=== PATIENT | female | born 1960 | race American Indian/Alaskan Native ===

== ENCOUNTER 2019-02-27 15:30 | Inpatient (IN) | payer OTHER ==
[~2019-02-27 15:30] MED LIST: HEPARIN 10,000 UNITS/10 ML ONE
[2019-02-27] MEDS ORDERED: ZOFRAN ONE (15:39)
[2019-02-27] MEDS ORDERED: MORPHINE ONE (15:39)
[2019-02-27] MEDS ORDERED: ZOFRAN IV ONE (15:39)
[2019-02-27] MEDS ORDERED: NACL 0.9% 1000 ML 1,000 ML IV ONE (15:39)
--- NOTE | 2019-02-27 15:39 | Emergency Department Report ---
ED Chest Pain HPI - General Stated Complaint: STEMI Time Seen by Provider: 02/27/19 15:37 - History of Present Illness Initial Comments: 58-year-old female STEMI code patient with prehospital EKG consistent with inferior STEMI. Her pain began yesterday. It was intermittent. She went to the movies. She returned to her home. He was found by EMS on the floor in the bathroom. She had nausea and some ongoing chest pain. She states she did not vomit. EMS states that she did pass out. She is here with a family member who gives conflicting information regarding her past medical history. Family member states that she was here 3 years ago and had a stent. The patient states that she does not have a stent in that she is not following up with a tank filler. She has a history of hypertension. She states that she does not have a history of myocardial infarction. Review of the patient's prior medical records in 2015 indicates the following: Hospitalization Reason for admission: unstable angina Condition: Serious Pertinent studies: stress test abn Cardiac cath today moderate 3 vessel disease Hospital course: Miss Gillette presented to the ER with chest pain and had normal cardiac enzymes; as stress test was abnormal and she went on to have a cardiac catherization which showed moderate 3 vessel disease; her chest pain resolved within 24 hours of presentation. condition at discharge-stable 31 minutes spent on dicharge The patient was admitted in cath and then treated medically for three-vessel disease. No likelihood she did not follow-up with a tank filler. She does state that she was going to the [facility] and recently began going to a primary care provider. MD Complaint: chest pain -: hour(s) Onset: during rest Pain Location: left chest Severity: moderate, severe Quality: tightness, heaviness Consistency: constant (now constant) Improves With: nothing Worsens With: nothing re: nausea, other (possible syncope). denies: dyspnea Other Symptoms: syncope. denies: cough, fever Treatments Prior to Arrival: aspirin (patient was given aspirin by EMS but no nitroglycerin) Aspirin use within the Past 7 Days: (0) No - Related Data Home Medications Medication Instructions Recorded Confirmed Last Taken Aspirin 325 mg PO QDAY 11/21/15 11/21/15 11/20/15 Niacin 250 mg PO DAILY 11/21/15 11/21/15 Unknown [place]-3 Fatty Acids [Fish Oil] 300 mg PO DAILY 11/21/15 11/21/15 Unknown Vit C/Ascorbate Calcium,Sodium 500 mg PO DAILY 11/21/15 11/21/15 Unknown [Vitamin C 500 mg/15 ml Liquid] Previous Rx's Medication Instructions Recorded Last Taken Type amLODIPine [Norvasc] 10 mg PO DAILY #90 tablet 01/16/15 11/20/15 Rx amLODIPine [Norvasc] 10 mg PO DAILY #30 tab 11/21/15 Unknown Rx AtorvaSTATin [Lipitor] 20 mg PO QHS #30 tablet 11/23/15 Unknown Rx Carvedilol [Coreg] 3.125 mg PO BID #60 tablet 11/23/15 Unknown Rx Clopidogrel [Plavix] 75 mg PO QDAY 30 Days tablet 11/23/15 Unknown Rx Nitroglycerin [Nitrostat] 0.4 mg SL Q5M PRN #30 tablet 11/23/15 Unknown Rx Allergies Allergy/AdvReac Type Severity Reaction Status Date / Time No Known Allergies Allergy Unverified 02/27/19 15:46 Heart Score - HEART Score History: Highly suspicious EKG: Significant ST-depression Age: 45-65 Risk factors: > 3 risk factors or hx of atherosclerotic disease Troponin: 1-3x normal limit HEART Score: 8 - Critical Actions Critical Actions: >7 pts:50-65% risk of adverse cardiac event. Early invasive measures ED Review of Systems ROS: Stated complaint: STEMI Other details as noted in HPI Constitutional: denies: chills, fever Eyes: denies: eye pain, eye discharge, vision change ENT: denies: ear pain, throat pain Respiratory: denies: cough, shortness of breath, wheezing Cardiovascular: chest pain. denies: palpitations Endocrine: no symptoms reported Gastrointestinal: nausea, vomiting. denies: abdominal pain, diarrhea Genitourinary: denies: urgency, dysuria, discharge Musculoskeletal: denies: back pain, joint swelling, arthralgia Skin: denies: rash, lesions Neurological: denies: headache, weakness, paresthesias Psychiatric: denies: anxiety, depression Hematological/Lymphatic: denies: easy bleeding, easy bruising ED Past Medical Hx - Past Medical History Hx Hypertension: Yes Additional medical history: Three-vessel coronary artery disease. Hypertension - Surgical History Hx Coronary Stent: No - Social History Smoking Status: Never Smoker - Medications Home Medications: Home Medications Medication Instructions Recorded Confirmed Last Taken Type amLODIPine [Norvasc] 10 mg PO DAILY #90 tablet 01/16/15 11/21/15 11/20/15 Rx Aspirin 325 mg PO QDAY 11/21/15 11/21/15 11/20/15 History Niacin 250 mg PO DAILY 11/21/15 11/21/15 Unknown History [place]-3 Fatty Acids [Fish Oil] 300 mg PO DAILY 11/21/15 11/21/15 Unknown History Vit C/Ascorbate Calcium,Sodium 500 mg PO DAILY 11/21/15 11/21/15 Unknown History [Vitamin C 500 mg/15 ml Liquid] amLODIPine [Norvasc] 10 mg PO DAILY #30 tab 11/21/15 Unknown Rx AtorvaSTATin [Lipitor] 20 mg PO QHS #30 tablet 11/23/15 Unknown Rx Carvedilol [Coreg] 3.125 mg PO BID #60 tablet 11/23/15 Unknown Rx Clopidogrel [Plavix] 75 mg PO QDAY 30 Days tablet 11/23/15 Unknown Rx Nitroglycerin [Nitrostat] 0.4 mg SL Q5M PRN #30 tablet 11/23/15 Unknown Rx ED Physical Exam - General General appearance: alert, in no apparent distress, other (a bit pale) - Head Head exam: Present: atraumatic, normocephalic - Eye Eye exam: Present: normal appearance - ENT ENT exam: Present: mucous membranes moist - Neck Neck exam: Present: normal inspection - Respiratory Respiratory exam: Present: normal lung sounds bilaterally. Absent: respiratory distress - Cardiovascular Cardiovascular Exam: Present: regular rate, normal rhythm. Absent: systolic murmur, diastolic murmur, rubs, gallop - GI/Abdominal GI/Abdominal exam: Present: soft, normal bowel sounds. Absent: distended, tenderness, guarding, rebound - Extremities Exam Extremities exam: Present: normal inspection - Back Exam Back exam: Present: normal inspection - Neurological Exam Neurological exam: Present: alert, oriented X3, CN II-XII intact. Absent: motor sensory deficit - Psychiatric Psychiatric exam: Present: normal affect, normal mood - Skin Skin exam: Present: warm, dry, intact, normal color. Absent: rash ED Course Vital Signs 02/27/19 02/27/19 02/27/19 15:41 15:42 15:45 Temperature 97.8 F Pulse Rate 55 L Respiratory 16 16 16 Rate Blood Pressure 128/55 O2 Sat by Pulse 100 100 Oximetry - Reevaluation(s) Reevaluation #1: A code STEMI was called upon receipt of prehospital EKG. Spoke to Dr. Willam heath prior to patient arrival. He is in route. Lab has been activated. Prehospital EKG consistent with inferior STEMI. EKG on arrival consistent with inferior STEMI. Patient with us pain since yesterday afternoon. She went to the movies today. Upon her return home chest pain worsened and she felt very nauseated. She was found by paramedics on the bathroom floor. She states that she did not lose consciousness. Medics question that she had a syncopal episode. They found her to have heart rates in the 50s but her blood pressure was definitely maintained. Patient was transported emergently for further care and stabilization. 02/27/19 15:37 Reevaluation #2: Mentioned the patient to Dr. Landon for possible admission to the hospitalist service. He will coordinate with Dr. Ortiz. 02/27/19 16:33 ED Medical Decision Making - Lab Data Result diagrams: 02/27/19 15:45 02/27/19 15:45 Laboratory Results - last 24 hr 02/27/19 02/27/19 02/27/19 15:45 15:45 15:45 WBC 7.7 RBC 4.46 Hgb 13.1 Hct 39.0 MCV 88 MCH 29 MCHC 34 RDW 14.2 Plt Count 476 H PT 14.0 INR 1.02 Sodium 141 Chloride 100.3 Carbon Dioxide 27 Anion Gap 16 BUN 16 Creatinine 0.6 L Estimated GFR > 60 BUN/Creatinine Ratio 27 Glucose 139 H Calcium 8.8 Magnesium 1.80 Total Bilirubin 0.30 AST 28 ALT 18 Alkaline Phosphatase 86 Total Creatine Kinase 367 H CK-MB (CK-2) 24.5 H CK-MB (CK-2) Rel Index 6.6 H NT-Pro-B Natriuret Pep 54.38 Total Protein 7.5 Albumin 4.0 Albumin/Globulin Ratio 1.1 Blood Type 02/27/19 15:45 WBC RBC Hgb Hct MCV MCH MCHC RDW Plt Count PT INR Sodium Chloride Carbon Dioxide Anion Gap BUN Creatinine Estimated GFR BUN/Creatinine Ratio Glucose Calcium Magnesium Total Bilirubin AST ALT Alkaline Phosphatase Total Creatine Kinase CK-MB (CK-2) CK-MB (CK-2) Rel Index NT-Pro-B Natriuret Pep Total Protein Albumin Albumin/Globulin Ratio Blood Type AB NEGATIVE Potassium is yet pending troponin is pending Critical Care Time: Yes Critical care time in (mins) excluding proc time.: 30 Critical care attestation.: If time is entered above; I have spent that time in minutes in the direct care of this critically ill patient, excluding procedure time. ED Disposition Clinical Impression: ST elevation [place] (STEMI) Qualifiers: Involved coronary artery: unspecified coronary artery Qualified Code(s): I21.3 - ST elevation (STEMI) myocardial infarction of unspecified site Disposition: DC09 OP ADMIT IP TO THIS HOSP Is pt being admited?: Yes Does the pt Need Aspirin: Yes Condition: Stable Time of Disposition: 16:35
[2019-02-27] MEDS ORDERED: HEPARIN IV ONE (15:41)
[2019-02-27] MEDS ORDERED: MORPHINE IV ONE (15:41)
[2019-02-27] MEDS ORDERED: HEPARIN/NS 5000 UNIT/500ML(CATH LAB) 1,000 ML IR ONE (15:57)
[2019-02-27] MEDS ORDERED: XYLOCAINE 2% INFILTRATI ONE (15:57)
[2019-02-27] MEDS ORDERED: CALAN ONE (15:57)
[2019-02-27] MEDS ORDERED: NITROGLYCERIN SYRINGE 3 ML ONE ×2 (15:58→16:45)
[2019-02-27] MEDS ORDERED: HEPARIN 10,000 UNITS/10 ML IV ONE (16:00)
[2019-02-27 16:02] LABS: Hemoglobin 13.1 gm/dl (10.1-14.3); Mean Corpuscular HGB Conc 34 % (30-34); Mean Corpuscular Volume 88 fl (79-97); Platelet Count 476 K/mm3 (140-440); Red Blood Count 4.46 M/mm3 (3.65-5.03); Red Cell Distribution Width 14.2 % (13.2-15.2)
[2019-02-27 16:08] LABS: INR 1.02 (0.87-1.13)
[2019-02-27 16:18] LABS: Creatine Kinase MB 24.5 ng/mL (0.0-4.0)
[2019-02-27 16:19] LABS: Alanine Aminotransferase 18 units/L (7-56); BUN/Creatinine Ratio 27; Blood Urea Nitrogen 16 mg/dL (7-17); Calcium 8.8 mg/dL (8.4-10.2); Hemolysis Index 2
[2019-02-27] MEDS: VERSED ONE ×2 (16:21→16:23)
[2019-02-27] MEDS: SUBLIMAZE ONE ×2 (16:21→16:23)
[2019-02-27] MEDS: HEPARIN 10,000 UNITS/10 ML ONE ×3 (16:24→17:02)
[2019-02-27 16:30] LABS: Bilirubin,Direct < 0.2 mg/dL (0-0.2)
[2019-02-27] MEDS ORDERED: AGGRASTAT DRIP (12.5 MG/250 ML) 12,500 MCG/250 ML BAG IV ONE (16:36)
[2019-02-27 16:49] LABS: Partial Thromboplastin Time 134.1 Sec. (24.2-36.6)
[2019-02-27 16:55] LABS: Band Neutrophils # (Manual) 0.1 K/mm3; Basophils % (Manual) 0 % (0.0-1.8); Total Cells Counted 100
[2019-02-27 16:56] LABS: Hypochromasia 1+; Platelet Estimate Appears Increased
[2019-02-27] MEDS ORDERED: BRILINTA ONE (16:57)
[2019-02-27] MEDS ORDERED: ALUM-MAG HYDROX-SIMETH 200-200-20MG/5ML ONE (16:58)
[2019-02-27] MEDS ORDERED: K-DUR PO ONE (17:00)
[2019-02-27 17:03] LABS: Chol/HDL Ratio 3.15 %
[2019-02-27] MEDS ORDERED: REGLAN IV PRN (17:12)
[2019-02-27] MEDS ORDERED: PERCOCET 5/325 PO PRN (17:12)
[2019-02-27] MEDS ORDERED: ZOFRAN IV PRN (17:12)
[2019-02-27] MEDS ORDERED: TYLENOL PO PRN (17:12)
[2019-02-27] MEDS ORDERED: SODIUM CHLORIDE FLUSH SYRINGE 10 ML IV PRN (17:12)
[2019-02-27] MEDS ORDERED: DILAUDID IV PRN (17:12)
--- NOTE | 2019-02-27 17:12 | History and Physical Report ---
History of Present Illness Date of examination: 02/27/19 Date of admission: 02/27/2019 Chief complaint: Severe chest pain since last night History of present illness: 58-year-old -[place]i female with history of hypertension and coronary artery disease has been having chest pain since yesterday. Chest pain was severe. Chest pain was about 8-10 on a scale of 1-10. She had nausea and vomiting 1 yesterday. Patient was found on the floor in the bathroom by EMS. It is unclear who called the EMS. EKG sent by EMS to the ER physician showed ST elevation MS in the inferior leads. Code STEMI was called and patient was transferred from room 18 in the emergency room directly to the Vocational Case Manager. Sound Engineering Technician on-call Dr. Willam Ortiz was informed and patient was taken for. Cath. Patient continues to have chest pain and diaphoresis. No palpitations. Nausea present. No shortness of breath. Chest pain is about 10 on a scale of 1-10. Sharp in intensity. No exacerbating or relieving factors. Last admission was reviewed from 2015 Patient had a cardiac cath. Stress test was abnormal. Patient had cardiac cath which showed moderate three-vessel disease and was prescribed a Plavix. Patient did not follow with cardiology. Was following at [facility] and now has a PCP Past Medical History Hypertension: Yes Additional medical history: Three-vessel coronary artery disease. Hypertension Surgical History Hx Coronary Stent: No Social History Smoking Status: Never Smoker Family history HTN CAD Medications Home Medications: Home Medications Medication Instructions Recorded Confirmed Last Taken Type amLODIPine [Norvasc] 10 mg PO DAILY #90 tablet 01/16/15 11/21/15 11/20/15 Rx Aspirin 325 mg PO QDAY 11/21/15 11/21/15 11/20/15 History Niacin 250 mg PO DAILY 11/21/15 11/21/15 Unknown History [place]-3 Fatty Acids [Fish Oil] 300 mg PO DAILY 11/21/15 11/21/15 Unknown History Vit C/Ascorbate Calcium,Sodium 500 mg PO DAILY 11/21/15 11/21/15 Unknown History [Vitamin C 500 mg/15 ml Liquid] amLODIPine [Norvasc] 10 mg PO DAILY #30 tab 11/21/15 Unknown Rx AtorvaSTATin [Lipitor] 20 mg PO QHS #30 tablet 11/23/15 Unknown Rx Carvedilol [Coreg] 3.125 mg PO BID #60 tablet 11/23/15 Unknown Rx Clopidogrel [Plavix] 75 mg PO QDAY 30 Days tablet 11/23/15 Unknown Rx Nitroglycerin [Nitrostat] 0.4 mg SL Q5M PRN #30 tablet 11/23/15 Unknown Rx Review of Systems ROS: Stated complaint: STEMI Other details as noted in HPI Constitutional: denies: chills, fever Eyes: denies: eye pain, eye discharge, vision change ENT: denies: ear pain, throat pain Respiratory: denies: cough, shortness of breath, wheezing Cardiovascular: chest pain. denies: palpitations Endocrine: no symptoms reported Gastrointestinal: nausea, vomiting. denies: abdominal pain, diarrhea Genitourinary: denies: urgency, dysuria, discharge Musculoskeletal: denies: back pain, joint swelling, arthralgia Skin: denies: rash, lesions Neurological: denies: headache, weakness, paresthesias Psychiatric: denies: anxiety, depression Hematological/Lymphatic: denies: easy bleeding, easy bruising 14 point review of systems done--- otherwise negative Medications and Allergies Allergies Allergy/AdvReac Type Severity Reaction Status Date / Time No Known Allergies Allergy Unverified 02/27/19 15:46 Home Medications Medication Instructions Recorded Confirmed Last Taken Type amLODIPine [Norvasc] 10 mg PO DAILY #90 tablet 01/16/15 11/21/15 11/20/15 Rx Aspirin 325 mg PO QDAY 11/21/15 11/21/15 11/20/15 History Niacin 250 mg PO DAILY 11/21/15 11/21/15 Unknown History [place]-3 Fatty Acids [Fish Oil] 300 mg PO DAILY 11/21/15 11/21/15 Unknown History Vit C/Ascorbate Calcium,Sodium 500 mg PO DAILY 11/21/15 11/21/15 Unknown History [Vitamin C 500 mg/15 ml Liquid] amLODIPine [Norvasc] 10 mg PO DAILY #30 tab 11/21/15 Unknown Rx AtorvaSTATin [Lipitor] 20 mg PO QHS #30 tablet 11/23/15 Unknown Rx Carvedilol [Coreg] 3.125 mg PO BID #60 tablet 11/23/15 Unknown Rx Clopidogrel [Plavix] 75 mg PO QDAY 30 Days tablet 11/23/15 Unknown Rx Nitroglycerin [Nitrostat] 0.4 mg SL Q5M PRN #30 tablet 11/23/15 Unknown Rx Active Meds: Active Medications Aspirin (Baby Aspirin) 81 mg PO QDAY ANUM Carvedilol (Coreg) 3.125 mg PO BID ANUM Sodium Chloride (Nacl 0.9% 1000 Ml) 1,000 mls @ 42 mls/hr IV ONCE ONE Stop: 02/28/19 15:27 Last Admin: 02/27/19 15:45 Dose: 42 mls/hr Documented by: Sodium Chloride (Nacl 0.9% 1000 Ml) 1,000 mls @ 125 mls/hr IV DIRECT ANUM Tirofiban/Sodium Chloride (Aggrastat Drip (12.5 Mg/250 Ml)) 12,500 mcg in 250 mls @ 0 mls/hr IV DIRECT ANUM; Protocol Ticagrelor (Brilinta) 90 mg PO BID ANUM Exam - Constitutional Vitals: Temp Pulse Resp BP Pulse Ox 97.8 F 55 L 16 128/55 100 02/27/19 15:41 02/27/19 15:41 02/27/19 15:45 02/27/19 15:41 02/27/19 15:45 General appearance: Present: no acute distress, well-nourished - EENT Eyes: Present: PERRL ENT: hearing intact, clear oral mucosa - Neck Neck: Present: supple, normal ROM - Respiratory Respiratory effort: normal Respiratory: bilateral: CTA - Cardiovascular Heart rate: 58 Rhythm: regular Heart Sounds: Present: S1 & S2. Absent: rub, click - Extremities Extremities: no ischemia, pulses intact, pulses symmetrical, No edema Peripheral Pulses: within normal limits - Abdominal General gastrointestinal: Present: soft, non-tender, non-distended, normal bowel sounds Female genitourinary: Present: normal - Rectal Rectal Exam: deferred - Integumentary Integumentary: Present: clear, warm, dry - Musculoskeletal Musculoskeletal: gait normal, strength equal bilaterally - Psychiatric Psychiatric: appropriate mood/affect, intact judgment & insight - Neurologic Neurologic: CNII-XII intact, moves all extremities - Allied Health Allied health notes reviewed: nursing, case management Results - Labs CBC & Chem 7: 02/27/19 15:45 02/27/19 15:45 Labs: Laboratory Last Values WBC 7.7 K/mm3 (4.5-11.0) 02/27/19 15:45 RBC 4.46 M/mm3 (3.65-5.03) 02/27/19 15:45 Hgb 13.1 gm/dl (10.1-14.3) 02/27/19 15:45 Hct 39.0 % (30.3-42.9) 02/27/19 15:45 MCV 88 fl (79-97) 02/27/19 15:45 MCH 29 pg (28-32) 02/27/19 15:45 MCHC 34 % (30-34) 02/27/19 15:45 RDW 14.2 % (13.2-15.2) 02/27/19 15:45 Plt Count 476 K/mm3 (140-440) H 02/27/19 15:45 Add Manual Diff Complete 02/27/19 15:45 Total Counted 100 02/27/19 15:45 Seg Neuts % (Manual) 54.0 % (40.0-70.0) 02/27/19 15:45 1.0 % 02/27/19 15:45 34.0 % (13.4-35.0) 02/27/19 15:45 Reactive Lymphs % (Man) 0 % 02/27/19 15:45 10.0 % (0.0-7.3) H 02/27/19 15:45 1.0 % (0.0-4.3) 02/27/19 15:45 0 % (0.0-1.8) 02/27/19 15:45 0 % 02/27/19 15:45 0 % 02/27/19 15:45 0 % 02/27/19 15:45 0 % 02/27/19 15:45 Nucleated RBC % Not Reportable 02/27/19 15:45 Seg Neutrophils # Man 4.2 K/mm3 (1.8-7.7) 02/27/19 15:45 Band Neutrophils # 0.1 K/mm3 02/27/19 15:45 2.6 K/mm3 (1.2-5.4) 02/27/19 15:45 Abs React Lymphs (Man) 0.0 K/mm3 02/27/19 15:45 0.8 K/mm3 (0.0-0.8) 02/27/19 15:45 0.1 K/mm3 (0.0-0.4) 02/27/19 15:45 0.0 K/mm3 (0.0-0.1) 02/27/19 15:45 0.0 K/mm3 02/27/19 15:45 0.0 K/mm3 02/27/19 15:45 0.0 K/mm3 02/27/19 15:45 Blast Cells # 0.0 K/mm3 02/27/19 15:45 WBC Morphology Not Reportable 02/27/19 15:45 WBC Morphology Registered Nurse Obstetrics 02/27/19 15:45 Hypersegmented Neuts Not Reportable 02/27/19 15:45 Hyposegmented Neuts Not Reportable 02/27/19 15:45 Hypogranular Neuts Not Reportable 02/27/19 15:45 Not Reportable 02/27/19 15:45 Not Reportable 02/27/19 15:45 Not Reportable 02/27/19 15:45 Not Reportable 02/27/19 15:45 Not Reportable 02/27/19 15:45 Not Reportable 02/27/19 15:45 Appears increased 02/27/19 15:45 Not Reportable 02/27/19 15:45 Plt Clumps, EDTA Not Reportable 02/27/19 15:45 Not Reportable 02/27/19 15:45 Not Reportable 02/27/19 15:45 Not Reportable 02/27/19 15:45 Plt Morphology Comment Not Reportable 02/27/19 15:45 RBC Morphology Not Reportable 02/27/19 15:45 Dimorphic RBCs Not Reportable 02/27/19 15:45 Not Reportable 02/27/19 15:45 1+ 02/27/19 15:45 Not Reportable 02/27/19 15:45 Not Reportable 02/27/19 15:45 Not Reportable 02/27/19 15:45 Not Reportable 02/27/19 15:45 Not Reportable 02/27/19 15:45 Not Reportable 02/27/19 15:45 Not Reportable 02/27/19 15:45 Not Reportable 02/27/19 15:45 Not Reportable 02/27/19 15:45 Not Reportable 02/27/19 15:45 Not Reportable 02/27/19 15:45 Not Reportable 02/27/19 15:45 Not Reportable 02/27/19 15:45 Not Reportable 02/27/19 15:45 Not Reportable 02/27/19 15:45 Not Reportable 02/27/19 15:45 Not Reportable 02/27/19 15:45 Acanthocytes (Spur) Not Reportable 02/27/19 15:45 Rouleaux Not Reportable 02/27/19 15:45 Not Reportable 02/27/19 15:45 Not Reportable 02/27/19 15:45 Not Reportable 02/27/19 15:45 Not Reportable 02/27/19 15:45 Hem Pathologist Commnt No 02/27/19 15:45 PT 14.0 Sec. (12.2-14.9) 02/27/19 15:45 INR 1.02 (0.87-1.13) 02/27/19 15:45 APTT 134.1 Sec. (24.2-36.6) H* 02/27/19 15:45 Sodium 141 mmol/L (137-145) 02/27/19 15:45 Potassium 2.5 mmol/L (3.6-5.0) L* 02/27/19 15:45 Chloride 100.3 mmol/L (98-107) 02/27/19 15:45 Carbon Dioxide 27 mmol/L (22-30) 02/27/19 15:45 16 mmol/L 02/27/19 15:45 BUN 16 mg/dL (7-17) 02/27/19 15:45 0.6 mg/dL (0.7-1.2) L 02/27/19 15:45 Estimated GFR > 60 ml/min 02/27/19 15:45 27 % 02/27/19 15:45 Glucose 139 mg/dL (65-100) H 02/27/19 15:45 Calcium 8.8 mg/dL (8.4-10.2) 02/27/19 15:45 Magnesium 1.80 mg/dL (1.7-2.3) 02/27/19 15:45 0.30 mg/dL (0.1-1.2) 02/27/19 15:45 < 0.2 mg/dL (0-0.2) 02/27/19 15:45 0.1 mg/dL 02/27/19 15:45 AST 28 units/L (5-40) 02/27/19 15:45 ALT 18 units/L (7-56) 02/27/19 15:45 86 units/L (35-129) 02/27/19 15:45 367 units/L (30-135) H 02/27/19 15:45 CK-MB (CK-2) 24.5 ng/mL (0.0-4.0) H 02/27/19 15:45 CK-MB (CK-2) Rel Index 6.6 (0-4) H 02/27/19 15:45 0.132 ng/mL (0.00-0.029) H* 02/27/19 15:45 NT-Pro-B Natriuret Pep 54.38 pg/mL (0-900) 02/27/19 15:45 7.5 g/dL (6.3-8.2) 02/27/19 15:45 4.0 g/dL (3.9-5) 02/27/19 15:45 1.1 % 02/27/19 15:45 Triglycerides 96 mg/dL (2-149) 02/27/19 15:45 Cholesterol 183 mg/dL (50-199) 02/27/19 15:45 117 mg/dL (50-130) 02/27/19 15:45 58 mg/dL (40-59) 02/27/19 15:45 3.15 % 02/27/19 15:45 Blood Type AB NEGATIVE 02/27/19 15:45 Short CBC 02/27/19 Range/Units 15:45 WBC 7.7 (4.5-11.0) K/mm3 Hgb 13.1 (10.1-14.3) gm/dl Hct 39.0 (30.3-42.9) % Plt Count 476 H (140-440) K/mm3 BMP 02/27/19 15:45 Sodium 141 Potassium 2.5 L* Chloride 100.3 Carbon Dioxide 27 BUN 16 Creatinine 0.6 L Glucose 139 H Calcium 8.8 Cardiac Enzymes 02/27/19 Range/Units 15:45 Total Creatine Kinase 367 H (30-135) units/L CK-MB (CK-2) 24.5 H (0.0-4.0) ng/mL Troponin T 0.132 H* (0.00-0.029) ng/mL Liver Function 02/27/19 Range/Units 15:45 Total Bilirubin 0.30 (0.1-1.2) mg/dL Direct Bilirubin < 0.2 (0-0.2) mg/dL AST 28 (5-40) units/L ALT 18 (7-56) units/L Alkaline Phosphatase 86 (35-129) units/L Albumin 4.0 (3.9-5) g/dL - Imaging and Cardiology EKG: report reviewed (ST elevation in lead 2-lead 3 and aVF. Reciprocal changes present. Heart rate of 58/m EKG interpreted by me) Imaging and Cardiology: Chest x-ray FINDINGS: No infiltrate, pleural effusion, or pneumothorax seen. The cardiomediastinal silhouette is normal. IMPRESSION: No acute cardiopulmonary abnormality. This document is electronically signed by Oneida Bear MD., Feb 27 2019 06:46:05 PM ET Transcribed By: PAF Dictated By: ONEIDA BEAR MD Electronically Authenticated By: ONEIDA BEAR MD Signed Date/Time: 02/27/19 8263 Assessment and Plan Assessment and plan: Critical care segment The high probability of a clinically significant, sudden on left third and deterioration of the pulmonary, cardiac, reveals systems required my full and direct attention, intervention and personal management. The aggravated K dialysis 35 minutes. This time is in addition to time spent performing reported procedures but includes the following #1 data review and interpretation #2 patient assessment and monitoring of vital signs #3 documentation #4 medication orders and management Advance Directives: Yes (full code) VTE prophylaxis?: Chemical Plan of care discussed with patient/family: Yes - Patient Problems (1) ST elevation [place] (STEMI) Current Visit: Yes Status: Acute Qualifiers: Involved coronary artery: unspecified coronary artery Qualified Code(s): I21.3 - ST elevation (STEMI) myocardial infarction of unspecified site Plan to address problem: Patient taken to laboratory manager directly Patient had a stent placed in RCA Patient has moderate to severe disease in LAD and circumflex also as per Dr. Willam Ortiz Patient to be taken for cath on Thursday Patient initiated on Aggrastat bolus and drip High-intensity statins (2) CAD (coronary artery disease) Current Visit: No Status: Chronic Plan to address problem: Patient for cath on Thursday again Possible stent placement in LAD and circumflex Aggrastat drip (3) Hypertension Current Visit: No Status: Chronic Qualifiers: Hypertension type: essential hypertension Qualified Code(s): I10 - Essential (primary) hypertension Plan to address problem: Continue antihypertensives (4) Hypokalemia Current Visit: Yes Status: Acute Plan to address problem: IV potassium and by mouth potassium Recheck potassium level (5) Hyperlipidemia Current Visit: Yes Status: Chronic Qualifiers: Hyperlipidemia type: mixed hyperlipidemia Qualified Code(s): E78.2 - Mixed hyperlipidemia Plan to address problem: Continue statins (6) DVT prophylaxis Current Visit: Yes Status: Acute Plan to address problem: Patient on Aggrastat and GI prophylaxis Lovenox when the Aggrastat is stopped
[2019-02-27] MEDS ORDERED: NITROSTAT SL PRN (17:14)
--- NOTE | 2019-02-27 17:20 | Consultation ---
History of Present Illness Consult date: 02/27/19 Requesting physician: BRAXTON WARD Consult reason: chest pain History of present illness: The patient is a 58-year-old with no significant cardiac history. She does have a history of hypertension. She was apparently having on and off chest pain since yesterday. The staff known after returning from the movies with her pain worsen and she reports she almost passed out in the bathroom. EMT were called on arrival the EKG revealed inferior ST elevation NM. Code STEMI was activated from the field. Patient continued to have chest pain and was taken emergently to the laborer yard and underwent successful primary PCI of the right coronary artery. Post-PCI patient is currently chest pain-free. Past History Past Medical History: hypertension Past Surgical History: No surgical history Family history: CAD (father and history of bypass surgery) Medications and Allergies Allergies Allergy/AdvReac Type Severity Reaction Status Date / Time No Known Allergies Allergy Unverified 02/27/19 15:46 Home Medications Medication Instructions Recorded Confirmed Last Taken Type amLODIPine [Norvasc] 10 mg PO DAILY #90 tablet 01/16/15 11/21/15 11/20/15 Rx Aspirin 325 mg PO QDAY 11/21/15 11/21/15 11/20/15 History Niacin 250 mg PO DAILY 11/21/15 11/21/15 Unknown History [place]-3 Fatty Acids [Fish Oil] 300 mg PO DAILY 11/21/15 11/21/15 Unknown History Vit C/Ascorbate Calcium,Sodium 500 mg PO DAILY 11/21/15 11/21/15 Unknown History [Vitamin C 500 mg/15 ml Liquid] amLODIPine [Norvasc] 10 mg PO DAILY #30 tab 11/21/15 Unknown Rx AtorvaSTATin [Lipitor] 20 mg PO QHS #30 tablet 11/23/15 Unknown Rx Carvedilol [Coreg] 3.125 mg PO BID #60 tablet 11/23/15 Unknown Rx Clopidogrel [Plavix] 75 mg PO QDAY 30 Days tablet 11/23/15 Unknown Rx Nitroglycerin [Nitrostat] 0.4 mg SL Q5M PRN #30 tablet 11/23/15 Unknown Rx Active Meds: Active Medications Aspirin (Baby Aspirin) 81 mg PO QDAY ANUM Carvedilol (Coreg) 3.125 mg PO BID ANUM Sodium Chloride (Nacl 0.9% 1000 Ml) 1,000 mls @ 42 mls/hr IV ONCE ONE Stop: 02/28/19 15:27 Last Admin: 02/27/19 15:45 Dose: 42 mls/hr Documented by: Sodium Chloride (Nacl 0.9% 1000 Ml) 1,000 mls @ 125 mls/hr IV DIRECT ANUM Tirofiban/Sodium Chloride (Aggrastat Drip (12.5 Mg/250 Ml)) 12,500 mcg in 250 mls @ 0 mls/hr IV DIRECT ANUM; Protocol Ticagrelor (Brilinta) 90 mg PO BID ANUM Review of Systems All systems: negative (except mentioned in the H&P) Physical Examination Vital Signs Temp Pulse Resp BP Pulse Ox 97.8 F 55 L 16 128/55 100 02/27/19 15:41 02/27/19 15:41 02/27/19 15:41 02/27/19 15:41 02/27/19 15:41 Narrative exam: Physical examination Vitals reviewed GEN: No acute distress noted HEENT: Carotids 2+ NECK: Supple CVS: S1 and S2 heard no significant murmur or gallop noted LUNGS/CHEST: Normal auscultation ABD: Soft nontender Extremities: No edema noted normal color NEURO: Alert moves all all 4 extremities PSY: Stable Results 02/27/19 15:45 02/27/19 15:45 Cardiac Enzymes 02/27/19 Range/Units 15:45 AST 28 (5-40) units/L CK-MB (CK-2) 24.5 H (0.0-4.0) ng/mL Coagulation 02/27/19 Range/Units 15:45 PT 14.0 (12.2-14.9) Sec. INR 1.02 (0.87-1.13) APTT 134.1 H* (24.2-36.6) Sec. Lipids 02/27/19 Range/Units 15:45 Triglycerides 96 (2-149) mg/dL Cholesterol 183 (50-199) mg/dL HDL Cholesterol 58 (40-59) mg/dL Cholesterol/HDL Ratio 3.15 % CBC 02/27/19 Range/Units 15:45 WBC 7.7 (4.5-11.0) K/mm3 RBC 4.46 (3.65-5.03) M/mm3 Hgb 13.1 (10.1-14.3) gm/dl Hct 39.0 (30.3-42.9) % Plt Count 476 H (140-440) K/mm3 Comprehensive Metabolic Panel 02/27/19 Range/Units 15:45 Sodium 141 (137-145) mmol/L Potassium 2.5 L* (3.6-5.0) mmol/L Chloride 100.3 (98-107) mmol/L Carbon Dioxide 27 (22-30) mmol/L BUN 16 (7-17) mg/dL Creatinine 0.6 L (0.7-1.2) mg/dL Glucose 139 H (65-100) mg/dL Calcium 8.8 (8.4-10.2) mg/dL Direct Bilirubin < 0.2 (0-0.2) mg/dL Indirect Bilirubin 0.1 mg/dL AST 28 (5-40) units/L ALT 18 (7-56) units/L Alkaline Phosphatase 86 (35-129) units/L Total Protein 7.5 (6.3-8.2) g/dL Albumin 4.0 (3.9-5) g/dL EKG interpretations - Telemetry EKG Rhythm: Sinus Rhythm (with inferior ST elevation NM) Assessment and Plan Impression * Chest pain * Acute inferior ST elevation NM * Status post primary PCI of the right coronary artery with drug-eluting stent * Diagnostic cath also revealing 70% proximal circumflex and 70% proximal LAD * Hypokalemia * Hypertension * Obesity * Family history of CAD Plan * Due to antiplatelet therapy for one year preferably more * Aggrastat for 12 hours * Replace potassium. She received 40 mg of potassium by mouth in the laborer yard 10 mg IV has been ordered. Potassium will be rechecked and replaced as necessary. * Low-dose Coreg * Statins * GI prophylaxis * Patient will need PCI of the LAD circumflex likely in the same setting this Thursday if stable Discussed the results with the family. Admitting physician and ICU team notified
[2019-02-27] MEDS: AGGRASTAT DRIP (12.5 MG/250 ML) 12,500 MCG/250 ML BAG IV SCH (18:00)
[2019-02-27] MEDS ORDERED: KCL 10MEQ/100ML 10 MEQ/100 ML BAG IV ONE (18:00)
[2019-02-27] MEDS ORDERED: ASPIRIN PO SCH (18:00)
--- NOTE | 2019-02-27 18:48 | XRay Report ---
PROCEDURE: XR CHEST 1V AP TECHNIQUE: Chest radiograph single view. HISTORY: chest pain COMPARISONS: None . FINDINGS: No infiltrate, pleural effusion, or pneumothorax seen. The cardiomediastinal silhouette is normal. IMPRESSION: No acute cardiopulmonary abnormality. This document is electronically signed by Santino Morris MD., Feb 27 2019 06:46:05 PM ET
[2019-02-27] MEDS: NACL 0.9% 1000 ML 1,000 ML IV SCH (19:07)
[2019-02-27] MEDS: NORVASC PO SCH (19:08)
[2019-02-27] MEDS ORDERED: KCL 10MEQ/100ML 10 MEQ/100 ML BAG IV SCH (21:00)
[2019-02-27 21:02] LABS: Creatine Kinase MB 29.2 ng/mL (0.0-4.0)
[2019-02-27] MEDS: K-DUR PO SCH (21:30)
[2019-02-27] MEDS: PEPCID PO SCH (21:38)
[2019-02-27] MEDS: COREG PO SCH (21:40)
[2019-02-27] MEDS: SODIUM CHLORIDE FLUSH SYRINGE 10 ML IV SCH (21:40)
[2019-02-27 21:52] LABS: Creatine Kinase MB 29.9 ng/mL (0.0-4.0)
[2019-02-27] MEDS ORDERED: COREG PO SCH (22:00)
[2019-02-27] MEDS: KCL 10MEQ/100ML 10 MEQ/100 ML BAG IV SCH ×2 (22:00→23:11)
[2019-02-28] MEDS: K-DUR PO SCH (00:14)
[2019-02-28] MEDS: KCL 10MEQ/100ML 10 MEQ/100 ML BAG IV SCH ×2 (00:15→01:42)
--- NOTE | 2019-02-28 01:43 | Cardiac Catherization Report ---
PROCEDURES PERFORMED: 1. Selective left and right coronary angiogram. 2. Left ventriculogram. 3. Successful percutaneous intervention of the right coronary artery in the setting of acute inferior ST elevation GA. OUTSIDE CUTTER: Alistair Ortiz MD DESCRIPTION OF PROCEDURE: 1. The patient was prepped and draped in a sterile fashion after informed consent. 2. Local Lidocaine (1%) was infiltrated around the right antecubital area. 3. The right radial artery was enlarged using the Seldinger technique, followed by the development of a 6-Mauritanian sheath. 4. Selective right and left coronary angiography was done using a Scones #2 catheter. 5. The Scones catheter was exchanged for a pigtail catheter. Left ventricular angiography was performed using a 6-Mauritanian pigtail catheter. 6. All of the catheters were removed, the sheath was removed, and hemostasis achieved by digital pressure. 7. The right radial pulse was palpable at 2+ following the procedure. There were no complications, equipment malfunction, or technical difficulties. FINDINGS: HEMODYNAMICS: AO 119/57, LV 119. LVEDP was 17. Left ventriculogram done in 30-degree JERNIGAN projection shows normal LV systolic function, EF greater than 55%. ANGIOGRAM DETAILS: 1. Left main is angiographically normal. 2. LAD is a medium to large caliber vessel. Proximal eccentric 70% stenosis noted. 3. The circumflex also is a large caliber vessel with a history 70% to 80% proximal stenosis. 4. The RCA is a medium caliber dominant vessel with an ulcerated plaque and 90% to 95% stenosis in the mid portion. IMPRESSION: 1. Triple vessel coronary artery disease involving proximal 70% LAD, 70% to 80% circumflex, and ulcerated right coronary artery. 2. Preserved LV systolic function. PLAN: Proceed with PCI of the right coronary artery. PERCUTANEOUS INTERVENTION: Intravenous heparin was used to maintain therapeutic ACT. A JR4 guide catheter was used to engage the right coronary artery. A BMW wire was used as a standard guidewire. In view of the ulcerated lesion and LAZARUS 2 flow, intravenous Aggrastat was also initiated. After initial predilatation, a 2.75 x 18 mm Resolute Integrity drug-eluting stent was deployed across the stenosis in the mid RCA. This was then postdilated with a 3.0 balloon to high atmospheres. The resultant angiogram showed excellent stent apposition with no residual thrombus or dissection. Good LAZARUS 3 flow and blush noted. The patient tolerated the procedure and chest pain free at the end of the procedure. The guide was removed over the wire. Brilinta 180 mg load was given. IMPRESSION: Status post successful percutaneous intervention of the right coronary artery in the setting of ST elevation myocardial infarction. PLAN: 1. Aspirin for life. 2. Brilinta for 1 year. 3. Aggrastat for 12 hours. 4. Routine adjuvant pharmacotherapy post PCI. 5. PCI of the LAD and circumflex when stable JOB# [id number] CHRISTIAN/RAULITO ALANIZ
--- NOTE | 2019-02-28 03:11 | XRay Report ---
PROCEDURE: XR CHEST 1V AP TECHNIQUE: Chest radiograph single view. HISTORY: post pci COMPARISONS: February 27, 2019 . FINDINGS: Heart: Normal. Mediastinum/Vessels: Normal. Lungs/Pleural space: Normal. Bony thorax: No acute osseous abnormality. Life support devices: None. IMPRESSION: No acute cardiopulmonary abnormality. This document is electronically signed by Anette Geller DO., Feb 28 2019 03:09:51 AM ET
[2019-02-28 04:56] LABS: Basophils # (Auto) 0.1 K/mm3 (0.0-0.1); Basophils % (Auto) 0.7 % (0.0-1.8); Eosinophils % (Auto) 0.3 % (0.0-4.3); Hematocrit 38.7 % (30.3-42.9); Hemoglobin 13.1 gm/dl (10.1-14.3); Lymphocytes % (Auto) 18.3 % (13.4-35.0); Mean Corpuscular HGB Conc 34 % (30-34); Mean Corpuscular Volume 87 fl (79-97); Monocytes # (Auto) 0.7 K/mm3 (0.0-0.8); Monocytes % (Auto) 6.8 % (0.0-7.3); Platelet Count 430 K/mm3 (140-440); Red Blood Count 4.44 M/mm3 (3.65-5.03); Red Cell Distribution Width 14.4 % (13.2-15.2)
[2019-02-28] MEDS: AGGRASTAT DRIP (12.5 MG/250 ML) 12,500 MCG/250 ML BAG IV SCH (05:01)
[2019-02-28 05:11] LABS: Creatine Kinase MB 49.1 ng/mL (0.0-4.0)
[2019-02-28 05:12] LABS: BUN/Creatinine Ratio 23; Blood Urea Nitrogen 9 mg/dL (7-17); Calcium 8.9 mg/dL (8.4-10.2); Hemolysis Index 3
[2019-02-28] MEDS: NACL 0.9% 1000 ML 1,000 ML IV SCH (08:42)
--- NOTE | 2019-02-28 09:15 | Progress Note ---
Assessment and Plan Assessment and plan: Acute inferior STEMI Patient presented with chest pain s/p code STEMI called She was taken to cardiac [facility] and had primary PCI of the right coronary artery with drug-eluting stent . Diagnostic cath also revealing 70% proximal circumflex and 70% proximal LAD. For PCI of LAD on Thu On Brilinta, Plavix Hypokalemia Replaced, resolved CAD With STEMI Hypertension Monitor BP continue Amloduipine hyperlipidemia statin. Full code status History Interval history: Patient presented with chest pain, diagnosed with STEMI s/p cardiac cath PCI No more chest pain Hospitalist Physical - Physical exam Narrative exam: Gen: Not in acute distress, lying in bed, obese HEENT: Normocephalic, atraumatic Neck: supple, no JVD Heart: S1 and S2 reg, no murmurs, rubs or gallop Lungs: Clear, no crackles, no wheeze Abd: soft, non tender, non distended, normal BS Ext: No edema, no clubbing, no cyanosis, Neuro: Awake,alert, oriented x 3, moves all ext, non focal Psych:Normal mood - Constitutional Vitals: Temp Pulse Resp BP Pulse Ox 97.7 F 61 19 154/82 99 02/28/19 08:00 02/28/19 07:00 02/28/19 07:00 02/28/19 07:00 02/28/19 07:00 General appearance: Present: no acute distress, obese Results - Labs CBC & Chem 7: 02/28/19 04:19 02/28/19 04:19 Labs: Laboratory Last Values WBC 10.7 K/mm3 (4.5-11.0) 02/28/19 04:19 RBC 4.44 M/mm3 (3.65-5.03) 02/28/19 04:19 Hgb 13.1 gm/dl (10.1-14.3) 02/28/19 04:19 Hct 38.7 % (30.3-42.9) 02/28/19 04:19 MCV 87 fl (79-97) 02/28/19 04:19 MCH 30 pg (28-32) 02/28/19 04:19 MCHC 34 % (30-34) 02/28/19 04:19 RDW 14.4 % (13.2-15.2) 02/28/19 04:19 Plt Count 430 K/mm3 (140-440) 02/28/19 04:19 Lymph % (Auto) 18.3 % (13.4-35.0) 02/28/19 04:19 [place] % (Auto) 6.8 % (0.0-7.3) 02/28/19 04:19 Eos % (Auto) 0.3 % (0.0-4.3) 02/28/19 04:19 Baso % (Auto) 0.7 % (0.0-1.8) 02/28/19 04:19 Lymph # 2.0 K/mm3 (1.2-5.4) 02/28/19 04:19 [place] # 0.7 K/mm3 (0.0-0.8) 02/28/19 04:19 Eos # 0.0 K/mm3 (0.0-0.4) 02/28/19 04:19 Baso # 0.1 K/mm3 (0.0-0.1) 02/28/19 04:19 Add Manual Diff Complete 02/27/19 15:45 Total Counted 100 02/27/19 15:45 Seg Neutrophils % 73.9 % (40.0-70.0) H 02/28/19 04:19 Seg Neuts % (Manual) 54.0 % (40.0-70.0) 02/27/19 15:45 1.0 % 02/27/19 15:45 34.0 % (13.4-35.0) 02/27/19 15:45 Reactive Lymphs % (Man) 0 % 02/27/19 15:45 10.0 % (0.0-7.3) H 02/27/19 15:45 1.0 % (0.0-4.3) 02/27/19 15:45 0 % (0.0-1.8) 02/27/19 15:45 0 % 02/27/19 15:45 0 % 02/27/19 15:45 0 % 02/27/19 15:45 0 % 02/27/19 15:45 Nucleated RBC % Not Reportable 02/27/19 15:45 Seg Neutrophils # 7.9 K/mm3 (1.8-7.7) H 02/28/19 04:19 Seg Neutrophils # Man 4.2 K/mm3 (1.8-7.7) 02/27/19 15:45 Band Neutrophils # 0.1 K/mm3 02/27/19 15:45 2.6 K/mm3 (1.2-5.4) 02/27/19 15:45 Abs React Lymphs (Man) 0.0 K/mm3 02/27/19 15:45 0.8 K/mm3 (0.0-0.8) 02/27/19 15:45 0.1 K/mm3 (0.0-0.4) 02/27/19 15:45 0.0 K/mm3 (0.0-0.1) 02/27/19 15:45 0.0 K/mm3 02/27/19 15:45 0.0 K/mm3 02/27/19 15:45 0.0 K/mm3 02/27/19 15:45 Blast Cells # 0.0 K/mm3 02/27/19 15:45 WBC Morphology Not Reportable 02/27/19 15:45 WBC Morphology Chip Frier 02/27/19 15:45 Hypersegmented Neuts Not Reportable 02/27/19 15:45 Hyposegmented Neuts Not Reportable 02/27/19 15:45 Hypogranular Neuts Not Reportable 02/27/19 15:45 Not Reportable 02/27/19 15:45 Not Reportable 02/27/19 15:45 Not Reportable 02/27/19 15:45 Not Reportable 02/27/19 15:45 Not Reportable 02/27/19 15:45 Not Reportable 02/27/19 15:45 Appears increased 02/27/19 15:45 Not Reportable 02/27/19 15:45 Plt Clumps, EDTA Not Reportable 02/27/19 15:45 Not Reportable 02/27/19 15:45 Not Reportable 02/27/19 15:45 Not Reportable 02/27/19 15:45 Plt Morphology Comment Not Reportable 02/27/19 15:45 RBC Morphology Not Reportable 02/27/19 15:45 Dimorphic RBCs Not Reportable 02/27/19 15:45 Not Reportable 02/27/19 15:45 1+ 02/27/19 15:45 Not Reportable 02/27/19 15:45 Not Reportable 02/27/19 15:45 Not Reportable 02/27/19 15:45 Not Reportable 02/27/19 15:45 Not Reportable 02/27/19 15:45 Not Reportable 02/27/19 15:45 Not Reportable 02/27/19 15:45 Not Reportable 02/27/19 15:45 Not Reportable 02/27/19 15:45 Not Reportable 02/27/19 15:45 Not Reportable 02/27/19 15:45 Not Reportable 02/27/19 15:45 Not Reportable 02/27/19 15:45 Not Reportable 02/27/19 15:45 Not Reportable 02/27/19 15:45 Not Reportable 02/27/19 15:45 Not Reportable 02/27/19 15:45 Acanthocytes (Spur) Not Reportable 02/27/19 15:45 Rouleaux Not Reportable 02/27/19 15:45 Not Reportable 02/27/19 15:45 Not Reportable 02/27/19 15:45 Not Reportable 02/27/19 15:45 Not Reportable 02/27/19 15:45 Hem Pathologist Commnt No 02/27/19 15:45 PT 14.0 Sec. (12.2-14.9) 02/27/19 15:45 INR 1.02 (0.87-1.13) 02/27/19 15:45 APTT 134.1 Sec. (24.2-36.6) H* 02/27/19 15:45 Sodium 142 mmol/L (137-145) 02/28/19 04:19 Potassium 4.4 mmol/L (3.6-5.0) D 02/28/19 04:19 Chloride 109.8 mmol/L (98-107) H 02/28/19 04:19 Carbon Dioxide 25 mmol/L (22-30) 02/28/19 04:19 12 mmol/L 02/28/19 04:19 BUN 9 mg/dL (7-17) 02/28/19 04:19 0.4 mg/dL (0.7-1.2) L 02/28/19 04:19 Estimated GFR > 60 ml/min 02/28/19 04:19 23 % 02/28/19 04:19 Glucose 92 mg/dL (65-100) 02/28/19 04:19 5.4 % (4-6) 02/27/19 19:13 Calcium 8.9 mg/dL (8.4-10.2) 02/28/19 04:19 Magnesium 1.80 mg/dL (1.7-2.3) 02/27/19 15:45 0.30 mg/dL (0.1-1.2) 02/27/19 15:45 < 0.2 mg/dL (0-0.2) 02/27/19 15:45 0.1 mg/dL 02/27/19 15:45 AST 28 units/L (5-40) 02/27/19 15:45 ALT 18 units/L (7-56) 02/27/19 15:45 86 units/L (35-129) 02/27/19 15:45 569 units/L (30-135) H 02/28/19 04:19 CK-MB (CK-2) 49.1 ng/mL (0.0-4.0) H 02/28/19 04:19 CK-MB (CK-2) Rel Index 8.6 (0-4) H 02/28/19 04:19 0.679 ng/mL (0.00-0.029) H* D 02/28/19 04:19 NT-Pro-B Natriuret Pep 54.38 pg/mL (0-900) 02/27/19 15:45 7.5 g/dL (6.3-8.2) 02/27/19 15:45 4.0 g/dL (3.9-5) 02/27/19 15:45 1.1 % 02/27/19 15:45 Triglycerides 96 mg/dL (2-149) 02/27/19 15:45 Cholesterol 183 mg/dL (50-199) 02/27/19 15:45 117 mg/dL (50-130) 02/27/19 15:45 58 mg/dL (40-59) 02/27/19 15:45 3.15 % 02/27/19 15:45 Blood Type AB NEGATIVE 02/27/19 15:45 Antibody Screen Positive 02/27/19 15:45 MEDARDO Antibody Screen Positive 02/27/19 15:45 Antibody Identification Anti-D (Actively Aquired) 02/27/19 15:45 Active Medications - Current Medications Current Medications: Generic Name Dose Route Start Last Admin Trade Name Freq PRN Reason Stop Dose Admin Acetaminophen 650 mg 02/27/19 17:12 Tylenol PO Q4H PRN Pain MILD(1-3)/Fever >100.5/CORREA Amlodipine Besylate 10 mg 02/27/19 18:00 02/27/19 19:08 Norvasc PO 10 mg DAILY ANUM Administration Ascorbic Acid 500 mg 02/28/19 10:00 Vitamin C PO QDAY [facility] Aspirin 81 mg 02/28/19 10:00 Baby Aspirin PO QDAY [facility] Atorvastatin Calcium 80 mg 02/27/19 22:00 02/27/19 21:37 Lipitor PO 80 mg QHS ANUM Administration Carvedilol 3.125 mg 02/27/19 22:00 02/27/19 21:40 Coreg PO Not Given BID [facility] Clopidogrel Bisulfate 75 mg 02/28/19 10:00 Plavix PO QDAY [facility] Famotidine 20 mg 02/27/19 22:00 02/27/19 21:38 Pepcid PO 20 mg BID [facility] Administration Hydromorphone HCl 0.5 mg 02/27/19 17:12 02/27/19 20:53 Dilaudid IV 0.5 mg Q3H PRN Administration Pain , Severe (7-10) Sodium Chloride 1,000 mls @ 42 mls/hr 02/27/19 15:39 02/27/19 15:45 Nacl 0.9% 1000 Ml IV 02/28/19 15:27 42 mls/hr ONCE ONE Administration Sodium Chloride 1,000 mls @ 75 mls/hr 02/27/19 18:00 02/28/19 08:42 Nacl 0.9% 1000 Ml IV 75 mls/hr DIRECT ANUM Administration Metoclopramide HCl 10 mg 02/27/19 17:12 02/27/19 20:30 Reglan IV 10 mg Q6H PRN Administration Nausea And Vomiting Miscellaneous Medication 250 mg 02/28/19 10:00 Niacin [Niacin] PO DAILY [facility] Miscellaneous Medication 300 mg 02/27/19 17:30 [place]-3 Fatty Acids [Fish Oil] PO DAILY [facility] Nitroglycerin 0.4 mg 02/27/19 17:14 Nitrostat SL Q5M PRN Chest Pain Ondansetron HCl 4 mg 02/27/19 17:12 02/27/19 19:59 Zofran IV 4 mg Q8H PRN Administration Nausea And Vomiting Oxycodone/Acetaminophen 1 tab 02/27/19 17:12 Percocet 5/325 PO Q6H PRN Pain, Moderate (4-6) Sodium Chloride 10 ml 02/27/19 22:00 02/27/19 21:40 Sodium Chloride Flush Syringe 10 Ml IV 10 ml BID ANUM Administration Sodium Chloride 10 ml 02/27/19 17:12 Sodium Chloride Flush Syringe 10 Ml IV PRN PRN LINE FLUSH Ticagrelor 90 mg 02/28/19 10:00 Brilinta PO BID ANUM
[2019-02-28] MEDS: PEPCID PO SCH ×2 (09:58→21:39)
[2019-02-28] MEDS: BRILINTA PO SCH ×2 (09:58→21:38)
[2019-02-28] MEDS: NORVASC PO SCH (09:59)
[2019-02-28] MEDS: COREG PO SCH ×2 (09:59→21:39)
[2019-02-28] MEDS ORDERED: ASCORBATE CALCIUM SODIUM PO SCH (10:00)
[2019-02-28] MEDS ORDERED: PLAVIX PO SCH (10:00)
[2019-02-28] MEDS: FATTY ACIDS PO SCH ×2 (10:00→19:34)
[2019-02-28] MEDS: NIACIN 250 MG PO SCH (10:00)
[2019-02-28] MEDS ORDERED: ASPIRIN PO SCH (10:00)
[2019-02-28] MEDS: OMEGA PO SCH ×2 (10:00→19:34)
[2019-02-28] MEDS ORDERED: VIT C PO SCH (10:00)
[2019-02-28] MEDS: VITAMIN C PO SCH (10:01)
[2019-02-28] MEDS: BABY ASPIRIN PO SCH (10:01)
--- NOTE | 2019-02-28 10:56 | Progress Note ---
Assessment and Plan 1. Acute ST elevation inferior wall ME. 2. Essential hypertension 3. Obesity 4. Hyperlipidemia Plan. Cardiac-woo stable post-PCI. Continue present medication Patient may be transferred to the telemetric floor. Subjective Date of service: 02/28/19 Interval history: No cardiac symptoms. Objective Vital Signs Temp Pulse Pulse Pulse Resp BP BP 02/28/19 09:59 76 142/61 02/28/19 08:50 67 141/72 02/28/19 08:00 97.7 F 02/28/19 07:00 61 19 154/82 02/28/19 06:45 65 10 L 151/85 02/28/19 06:30 67 15 166/92 02/28/19 06:15 66 13 152/79 02/28/19 06:00 73 15 146/66 02/28/19 05:45 71 21 146/68 02/28/19 05:30 66 16 169/76 02/28/19 05:15 69 11 L 161/74 02/28/19 05:00 63 12 151/73 02/28/19 04:45 65 12 147/76 02/28/19 04:30 89 18 130/79 02/28/19 04:15 68 22 130/79 02/28/19 04:00 98.1 F 72 86 16 136/83 02/28/19 03:45 63 18 139/72 02/28/19 03:30 64 25 H 139/79 02/28/19 03:15 66 18 146/71 02/28/19 03:00 63 22 146/74 02/28/19 02:45 62 19 148/73 02/28/19 02:30 71 19 139/73 02/28/19 02:16 98 H 24 162/82 02/28/19 02:00 71 24 154/72 02/28/19 01:45 67 26 H 154/72 02/28/19 01:30 66 25 H 132/87 02/28/19 01:15 63 19 132/87 02/28/19 01:00 60 13 137/88 02/28/19 00:45 55 L 12 149/59 02/28/19 00:30 62 10 L 170/107 02/28/19 00:16 69 18 170/107 02/28/19 00:00 98.1 F 69 61 13 154/80 02/27/19 23:45 74 14 149/77 02/27/19 23:30 74 13 139/66 02/27/19 23:15 67 16 141/73 02/27/19 23:00 67 15 151/74 02/27/19 22:45 72 14 154/82 02/27/19 22:30 59 L 20 134/79 02/27/19 22:15 65 21 134/79 02/27/19 22:00 62 19 123/69 02/27/19 21:45 55 L 18 123/69 02/27/19 21:40 46 L 131/67 02/27/19 21:30 54 L 23 126/64 02/27/19 21:15 51 L 17 126/64 02/27/19 21:00 45 L 18 134/66 02/27/19 20:46 59 L 21 135/67 02/27/19 20:30 50 L 17 154/92 02/27/19 20:16 54 L 19 154/92 02/27/19 20:00 97.3 F L 71 52 L 14 144/76 02/27/19 19:46 71 19 144/76 02/27/19 19:30 58 L 12 161/87 02/27/19 19:20 79 18 161/87 02/27/19 19:10 70 18 155/88 02/27/19 19:08 75 149/76 02/27/19 19:00 65 23 149/76 02/27/19 18:50 69 19 137/73 02/27/19 18:45 68 15 137/73 02/27/19 18:40 83 12 169/85 02/27/19 18:30 84 17 155/88 02/27/19 18:20 70 10 L 169/85 02/27/19 18:15 67 13 169/85 02/27/19 18:10 89 12 156/79 02/27/19 18:08 79 15 02/27/19 15:45 16 02/27/19 15:42 16 02/27/19 15:41 97.8 F 55 L 16 128/55 Pulse Ox 02/28/19 09:59 02/28/19 08:50 02/28/19 08:00 02/28/19 07:00 99 02/28/19 06:45 99 02/28/19 06:30 98 05/27/19 06:15 99 02/28/19 06:00 98 02/28/19 05:45 99 02/28/19 05:30 100 02/28/19 05:15 100 02/28/19 05:00 99 02/28/19 04:45 100 02/28/19 04:30 99 02/28/19 04:15 96 02/28/19 04:00 100 02/28/19 03:45 98 02/28/19 03:30 99 02/28/19 03:15 100 02/28/19 03:00 98 02/28/19 02:45 100 02/28/19 02:30 99 02/28/19 02:16 99 02/28/19 02:00 97 02/28/19 01:45 96 02/28/19 01:30 94 02/28/19 01:15 96 02/28/19 01:00 97 02/28/19 00:45 99 02/28/19 00:30 99 02/28/19 00:16 100 02/28/19 00:00 99 02/27/19 23:45 98 02/27/19 23:30 99 02/27/19 23:15 98 02/27/19 23:00 99 02/27/19 22:45 100 02/27/19 22:30 96 02/27/19 22:15 99 02/27/19 22:00 98 02/27/19 21:45 99 02/27/19 21:40 02/27/19 21:30 95 02/27/19 21:15 97 02/27/19 21:00 96 02/27/19 20:46 97 02/27/19 20:30 99 02/27/19 20:16 100 02/27/19 20:00 99 02/27/19 19:46 100 02/27/19 19:30 99 02/27/19 19:20 98 02/27/19 19:10 99 02/27/19 19:08 02/27/19 19:00 97 02/27/19 18:50 97 02/27/19 18:45 98 02/27/19 18:40 98 02/27/19 18:30 98 02/27/19 18:20 99 02/27/19 18:15 98 02/27/19 18:10 98 02/27/19 18:08 99 02/27/19 15:45 100 02/27/19 15:42 02/27/19 15:41 100 - Physical Examination General: Appears Well HEENT: Positive: PERRL, Normocephaly, Mucus Membranes Moist Neck: Positive: neck supple, trachea midline. Negative: JVD/HJR Cardiac: Positive: Regular Rate, S1/S2, PMI, Laterally Displaced. Negative: S3, S4 Lungs: Positive: clear to auscultation, No Wheeze, Rales, Rhonchi Neuro: Positive: Grossly Intact Abdomen: Positive: Soft, Active Bowel Sounds Extremities: Absent: edema - Labs and Meds Cardiac Enzymes 02/27/19 02/27/19 02/27/19 Range/Units 15:45 20:05 21:20 AST 28 (5-40) units/L CK-MB (CK-2) 24.5 H 29.2 H 29.9 H (0.0-4.0) ng/mL 02/28/19 Range/Units 04:19 AST (5-40) units/L CK-MB (CK-2) 49.1 H (0.0-4.0) ng/mL Coagulation 02/27/19 Range/Units 15:45 PT 14.0 (12.2-14.9) Sec. INR 1.02 (0.87-1.13) APTT 134.1 H* (24.2-36.6) Sec. Lipids 02/27/19 Range/Units 15:45 Triglycerides 96 (2-149) mg/dL Cholesterol 183 (50-199) mg/dL HDL Cholesterol 58 (40-59) mg/dL Cholesterol/HDL Ratio 3.15 % CBC 02/27/19 02/28/19 Range/Units 15:45 04:19 WBC 7.7 10.7 (4.5-11.0) K/mm3 RBC 4.46 4.44 (3.65-5.03) M/mm3 Hgb 13.1 13.1 (10.1-14.3) gm/dl Hct 39.0 38.7 (30.3-42.9) % Plt Count 476 H 430 (140-440) K/mm3 Lymph # 2.0 (1.2-5.4) K/mm3 [place] # 0.7 (0.0-0.8) K/mm3 Eos # 0.0 (0.0-0.4) K/mm3 Baso # 0.1 (0.0-0.1) K/mm3 Comprehensive Metabolic Panel 02/27/19 02/27/19 02/28/19 Range/Units 15:45 20:15 04:19 Sodium 141 142 (137-145) mmol/L Potassium 2.5 L* 3.1 L D 4.4 D (3.6-5.0) mmol/L Chloride 100.3 109.8 H (98-107) mmol/L Carbon Dioxide 27 25 (22-30) mmol/L BUN 16 9 (7-17) mg/dL Creatinine 0.6 L 0.4 L (0.7-1.2) mg/dL Glucose 139 H 92 (65-100) mg/dL Calcium 8.8 8.9 (8.4-10.2) mg/dL Direct Bilirubin < 0.2 (0-0.2) mg/dL Indirect Bilirubin 0.1 mg/dL AST 28 (5-40) units/L ALT 18 (7-56) units/L Alkaline Phosphatase 86 (35-129) units/L Total Protein 7.5 (6.3-8.2) g/dL Albumin 4.0 (3.9-5) g/dL - Imaging and Cardiology EKG: report reviewed (ST elevation in lead 2-lead 3 and aVF. Reciprocal changes present. Heart rate of 58/m EKG interpreted by me)
--- NOTE | 2019-02-28 12:11 | Consultation ---
History of Present Illness - Reason for Consult Consult date: 02/28/19 STEMI, post op Requesting physician: MIGUEL ANGEL CELIS - History of Present Illness 58-year-old -Vietnamese female with history of hypertension and coronary artery disease has been having chest pain since yesterday. Chest pain was severe. Chest pain was about 8-10 on a scale of 1-10. She had nausea and vomiting 1 yesterday. Patient was found on the floor in the bathroom by EMS. It is unclear who called the EMS. EKG sent by EMS to the ER physician showed ST elevation VT in the inferior leads. Code STEMI was called and patient was transferred from room 18 in the emergency room directly to the Heavy Antiarmor Weapons Infantryman. Die Repairer Trimmer Dies on-call Dr. Willam Celis was informed and patient was taken for. Cath. Successful PCI placement on yesterday, and transitioned to the ICU for monitoring. Chest pain free this am. Past History Past Medical History: CAD, hypertension, hyperlipidemia Past Surgical History: No surgical history Family history: CAD (father and history of bypass surgery) Medications and Allergies Allergies Allergy/AdvReac Type Severity Reaction Status Date / Time No Known Allergies Allergy Unverified 02/27/19 15:46 Home Medications Medication Instructions Recorded Confirmed Last Taken Type amLODIPine [Norvasc] 10 mg PO DAILY #90 tablet 01/16/15 02/27/19 02/27/19 01:00 Rx Aspirin 325 mg PO PRN 11/21/15 02/27/19 11/20/15 History Niacin 250 mg PO DAILY 11/21/15 11/21/15 Unknown History Shorter-3 Fatty Acids [Fish Oil] 300 mg PO DAILY 11/21/15 02/27/19 02/26/19 20:00 History Vit C/Ascorbate Calcium,Sodium 500 mg PO DAILY 11/21/15 02/27/19 02/26/19 20:00 History [Vitamin C 500 mg/15 ml Liquid] amLODIPine [Norvasc] 10 mg PO DAILY #30 tab 11/21/15 02/27/19 02/27/19 01:00 Rx AtorvaSTATin [Lipitor] 20 mg PO QHS #30 tablet 11/23/15 02/27/19 02/26/19 20:00 Rx Carvedilol [Coreg] 3.125 mg PO BID #60 tablet 11/23/15 Unknown Rx Clopidogrel [Plavix] 75 mg PO QDAY 30 Days tablet 11/23/15 Unknown Rx Nitroglycerin [Nitrostat] 0.4 mg SL Q5M PRN #30 tablet 11/23/15 Unknown Rx Active Meds: Active Medications Acetaminophen (Tylenol) 650 mg PO Q4H PRN PRN Reason: Pain MILD(1-3)/Fever >100.5/CORREA Amlodipine Besylate (Norvasc) 10 mg PO DAILY [facility] Last Admin: 02/28/19 09:59 Dose: 10 mg Documented by: Ascorbic Acid (Vitamin C) 500 mg PO QDAY [facility] Last Admin: 02/28/19 10:01 Dose: 500 mg Documented by: Aspirin (Baby Aspirin) 81 mg PO QDAY [facility] Last Admin: 02/28/19 10:01 Dose: 81 mg Documented by: Atorvastatin Calcium (Lipitor) 80 mg PO QHS [facility] Last Admin: 02/27/19 21:37 Dose: 80 mg Documented by: Carvedilol (Coreg) 3.125 mg PO BID [facility] Last Admin: 02/28/19 09:59 Dose: 3.125 mg Documented by: Clopidogrel Bisulfate (Plavix) 75 mg PO QDAY [facility] Last Admin: 02/28/19 09:59 Dose: 75 mg Documented by: Famotidine (Pepcid) 20 mg PO BID [facility] Last Admin: 02/28/19 09:58 Dose: 20 mg Documented by: Hydromorphone HCl (Dilaudid) 0.5 mg IV Q3H PRN PRN Reason: Pain , Severe (7-10) Last Admin: 02/27/19 20:53 Dose: 0.5 mg Documented by: Sodium Chloride (Nacl 0.9% 1000 Ml) 1,000 mls @ 42 mls/hr IV ONCE ONE Stop: 02/28/19 15:27 Last Admin: 02/27/19 15:45 Dose: 42 mls/hr Documented by: Sodium Chloride (Nacl 0.9% 1000 Ml) 1,000 mls @ 75 mls/hr IV DIRECT [facility] Last Admin: 02/28/19 08:42 Dose: 75 mls/hr Documented by: Metoclopramide HCl (Reglan) 10 mg IV Q6H PRN PRN Reason: Nausea And Vomiting Last Admin: 02/27/19 20:30 Dose: 10 mg Documented by: Miscellaneous Medication (Niacin [Niacin]) 250 mg PO DAILY [facility] Miscellaneous Medication (Shorter-3 Fatty Acids [Fish Oil]) 360 mg PO DAILY [facility] Nitroglycerin (Nitrostat) 0.4 mg SL Q5M PRN PRN Reason: Chest Pain Ondansetron HCl (Zofran) 4 mg IV Q8H PRN PRN Reason: Nausea And Vomiting Last Admin: 02/27/19 19:59 Dose: 4 mg Documented by: Oxycodone/Acetaminophen (Percocet 5/325) 1 tab PO Q6H PRN PRN Reason: Pain, Moderate (4-6) Sodium Chloride (Sodium Chloride Flush Syringe 10 Ml) 10 ml IV BID [facility] Last Admin: 02/27/19 21:40 Dose: 10 ml Documented by: Sodium Chloride (Sodium Chloride Flush Syringe 10 Ml) 10 ml IV PRN PRN PRN Reason: LINE FLUSH Ticagrelor (Brilinta) 90 mg PO BID [facility] Last Admin: 02/28/19 09:58 Dose: 90 mg Documented by: Review of Systems All systems: negative Exam - Constitutional Vitals: Temp Pulse Resp BP Pulse Ox 97.7 F 62 21 126/51 99 02/28/19 08:00 02/28/19 11:31 02/28/19 11:31 02/28/19 11:31 02/28/19 11:31 General appearance: Present: no acute distress - EENT Eyes: Present: PERRL, EOM intact ENT: hearing intact - Neck Neck: Present: supple - Respiratory Respiratory effort: normal Respiratory: bilateral: CTA - Cardiovascular Rhythm: regular - Abdominal General gastrointestinal: Present: soft, non-tender, normal bowel sounds Female genitourinary: Present: deferred - Rectal Rectal Exam: deferred Results - Labs CBC & Chem 7: 02/28/19 04:19 02/28/19 04:19 Labs: Abnormal lab results 02/27/19 02/27/19 02/27/19 Range/Units 15:45 15:45 15:45 Plt Count 476 H (140-440) K/mm3 Seg Neutrophils % (40.0-70.0) % Monocytes % (Manual) 10.0 H (0.0-7.3) % Seg Neutrophils # (1.8-7.7) K/mm3 APTT 134.1 H* (24.2-36.6) Sec. Potassium 2.5 L* (3.6-5.0) mmol/L Chloride (98-107) mmol/L Creatinine 0.6 L (0.7-1.2) mg/dL Glucose 139 H (65-100) mg/dL Total Creatine Kinase 367 H (30-135) units/L CK-MB (CK-2) 24.5 H (0.0-4.0) ng/mL CK-MB (CK-2) Rel Index 6.6 H (0-4) Troponin T 0.132 H* (0.00-0.029) ng/mL 02/27/19 02/27/19 02/27/19 Range/Units 20:05 20:15 21:20 Plt Count (140-440) K/mm3 Seg Neutrophils % (40.0-70.0) % Monocytes % (Manual) (0.0-7.3) % Seg Neutrophils # (1.8-7.7) K/mm3 APTT (24.2-36.6) Sec. Potassium 3.1 L D (3.6-5.0) mmol/L Chloride (98-107) mmol/L Creatinine (0.7-1.2) mg/dL Glucose (65-100) mg/dL Total Creatine Kinase 407 H 412 H (30-135) units/L CK-MB (CK-2) 29.2 H 29.9 H (0.0-4.0) ng/mL CK-MB (CK-2) Rel Index 7.1 H 7.2 H (0-4) Troponin T 0.330 H* D 0.257 H* D (0.00-0.029) ng/mL 02/28/19 02/28/19 02/28/19 Range/Units 04:19 04:19 04:19 Plt Count (140-440) K/mm3 Seg Neutrophils % 73.9 H (40.0-70.0) % Monocytes % (Manual) (0.0-7.3) % Seg Neutrophils # 7.9 H (1.8-7.7) K/mm3 APTT (24.2-36.6) Sec. Potassium (3.6-5.0) mmol/L Chloride 109.8 H (98-107) mmol/L Creatinine 0.4 L (0.7-1.2) mg/dL Glucose (65-100) mg/dL Total Creatine Kinase 569 H (30-135) units/L CK-MB (CK-2) 49.1 H (0.0-4.0) ng/mL CK-MB (CK-2) Rel Index 8.6 H (0-4) Troponin T 0.679 H* D (0.00-0.029) ng/mL 02/28/19 Range/Units 09:28 Plt Count (140-440) K/mm3 Seg Neutrophils % (40.0-70.0) % Monocytes % (Manual) (0.0-7.3) % Seg Neutrophils # (1.8-7.7) K/mm3 APTT (24.2-36.6) Sec. Potassium (3.6-5.0) mmol/L Chloride (98-107) mmol/L Creatinine (0.7-1.2) mg/dL Glucose (65-100) mg/dL Total Creatine Kinase (30-135) units/L CK-MB (CK-2) (0.0-4.0) ng/mL CK-MB (CK-2) Rel Index (0-4) Troponin T 0.593 H* (0.00-0.029) ng/mL - Imaging and Cardiology Chest x-ray: image reviewed Assessment and Plan 58 y/o female with hypertension and CAD admitted with STEMI, s/p PCI 1. No acute pulmonary issues 2. BP control 3. Stable from a critical care standpoint. AGree with floor transfer. Will sign off once out of the unit.
[2019-02-28] MEDS: SODIUM CHLORIDE FLUSH SYRINGE 10 ML IV SCH ×2 (19:34→21:39)
[2019-03-01 05:00] LABS: Hematocrit 39.4 % (30.3-42.9); Hemoglobin 13.3 gm/dl (10.1-14.3); Mean Corpuscular HGB Conc 34 % (30-34); Mean Corpuscular Volume 88 fl (79-97); Platelet Count 424 K/mm3 (140-440); Red Blood Count 4.47 M/mm3 (3.65-5.03); Red Cell Distribution Width 14.6 % (13.2-15.2)
[2019-03-01 05:23] LABS: BUN/Creatinine Ratio 16; Blood Urea Nitrogen 8 mg/dL (7-17); Calcium 8.7 mg/dL (8.4-10.2); Hemolysis Index 2
[2019-03-01] MEDS: NACL 0.9% 1000 ML 1,000 ML IV SCH (06:06)
[2019-03-01] MEDS: BABY ASPIRIN PO SCH (09:51)
[2019-03-01] MEDS: VITAMIN C PO SCH (09:51)
[2019-03-01] MEDS: NORVASC PO SCH (09:51)
[2019-03-01] MEDS: PEPCID PO SCH (09:51)
[2019-03-01] MEDS: COREG PO SCH (09:51)
[2019-03-01] MEDS: FATTY ACIDS PO SCH (09:52)
[2019-03-01] MEDS: NIACIN 250 MG PO SCH (09:52)
[2019-03-01] MEDS: OMEGA PO SCH (09:52)
[2019-03-01] MEDS: SODIUM CHLORIDE FLUSH SYRINGE 10 ML IV SCH (09:57)
--- NOTE | 2019-03-01 09:58 | Progress Note ---
Assessment and Plan Acute ST elevation inferior wall IN s/p PCI of the RCA using drug eluting stent. On plavix and aspirin. for staged PCI of the proximal LAD as an outpatient. Essential hypertension Obesity Hyperlipidemia Hypokalemia Normal LVEF 55-60% by echocardiogram. Recommendations: Continue medical therapy for coronary artery disease including plavix and aspirin without interruption. Stable cardiac woo. Once discharged, patient will follow up with Dr Ortiz March 09 at 220p. Subjective Date of service: 03/01/19 Interval history: Patient has no complaints. She denies chest pain. Objective Vital Signs Temp Pulse Pulse Resp BP Pulse Ox 03/01/19 09:51 79 152/82 03/01/19 09:01 66 16 137/63 98 03/01/19 08:45 71 13 138/65 98 03/01/19 08:30 74 18 140/75 98 03/01/19 08:15 78 15 146/65 100 03/01/19 08:00 98.1 F 70 17 146/65 98 03/01/19 07:45 66 14 131/66 97 03/01/19 07:31 68 18 121/63 99 03/01/19 07:15 64 20 130/73 97 03/01/19 07:00 78 16 141/67 99 03/01/19 06:45 66 22 120/54 98 03/01/19 06:31 68 21 120/56 99 03/01/19 06:15 64 20 120/56 97 03/01/19 06:00 58 L 12 128/57 97 03/01/19 05:45 65 21 117/52 98 03/01/19 05:30 68 24 127/58 97 03/01/19 05:15 69 16 131/53 95 03/01/19 05:00 71 24 113/53 98 03/01/19 04:45 67 23 119/54 98 03/01/19 04:30 65 17 127/55 98 03/01/19 04:15 64 18 118/62 98 03/01/19 04:00 89 67 18 144/83 100 03/01/19 03:52 98.4 F 03/01/19 03:45 65 16 153/88 98 03/01/19 03:31 66 20 153/88 93 03/01/19 03:15 74 13 121/75 100 03/01/19 03:00 73 18 118/70 100 05/28/19 02:45 66 21 127/57 96 03/01/19 02:30 80 10 L 142/120 95 03/01/19 02:15 68 23 123/62 99 03/01/19 02:00 61 18 128/83 99 03/01/19 01:45 65 23 150/64 97 03/01/19 01:31 66 24 129/60 96 03/01/19 01:15 65 24 150/64 96 03/01/19 01:00 69 21 143/63 97 03/01/19 00:45 60 26 H 137/75 98 03/01/19 00:30 62 22 129/64 95 03/01/19 00:15 65 12 130/62 98 03/01/19 00:00 66 68 10 L 120/59 100 02/28/19 23:45 63 24 129/58 96 02/28/19 23:35 68 19 135/60 99 02/28/19 23:30 70 21 135/60 99 02/28/19 23:18 98.7 F 02/28/19 23:15 75 14 131/70 98 02/28/19 23:01 68 21 150/68 98 02/28/19 22:45 64 19 157/64 98 02/28/19 22:30 70 10 L 157/75 99 02/28/19 22:15 73 22 154/129 98 02/28/19 22:01 70 11 L 168/74 100 02/28/19 21:45 70 24 151/77 99 02/28/19 21:39 63 145/61 02/28/19 21:30 64 24 145/61 100 02/28/19 21:15 76 19 138/69 100 02/28/19 21:00 68 16 143/54 97 02/28/19 20:45 75 16 135/64 99 02/28/19 20:31 76 17 135/64 100 02/28/19 20:15 66 14 135/64 99 02/28/19 20:01 62 25 H 118/80 97 02/28/19 20:00 66 66 21 100 02/28/19 19:47 98.2 F 02/28/19 19:45 67 25 H 122/89 98 02/28/19 19:30 68 24 123/53 97 02/28/19 19:15 68 22 140/59 99 02/28/19 19:00 57 L 21 133/56 98 02/28/19 18:45 64 25 H 125/58 98 02/28/19 18:31 65 23 115/53 96 02/28/19 18:15 64 23 124/57 96 02/28/19 18:00 64 17 136/58 97 02/28/19 17:45 68 13 152/63 99 02/28/19 17:30 74 12 137/65 99 02/28/19 17:15 63 16 136/85 100 02/28/19 17:00 64 26 H 145/74 96 02/28/19 16:45 61 23 165/78 100 02/28/19 16:31 66 21 143/72 100 02/28/19 16:15 73 19 110/90 98 02/28/19 16:01 65 11 L 110/90 99 02/28/19 16:00 98.2 F 62 62 18 100 02/28/19 15:45 69 15 135/76 96 02/28/19 15:31 76 11 L 147/66 99 02/28/19 15:15 74 14 147/66 98 02/28/19 15:00 69 25 H 141/70 99 02/28/19 14:45 72 14 138/78 99 02/28/19 14:30 68 21 126/62 99 02/28/19 14:15 74 16 147/64 98 02/28/19 14:00 74 11 L 127/78 100 02/28/19 13:45 85 22 130/65 98 02/28/19 13:31 69 16 130/65 99 02/28/19 13:15 67 14 160/79 99 02/28/19 13:00 65 23 160/79 99 02/28/19 12:45 79 13 147/84 100 02/28/19 12:30 70 12 161/72 99 02/28/19 12:15 70 12 149/81 97 02/28/19 12:00 97.9 F 60 61 20 139/93 98 02/28/19 11:45 66 20 145/83 99 02/28/19 11:31 62 21 126/51 99 02/28/19 11:15 71 19 158/83 97 02/28/19 11:00 74 17 150/76 99 02/28/19 10:45 66 18 158/88 97 02/28/19 10:30 71 15 151/79 99 02/28/19 10:15 76 15 137/96 98 02/28/19 10:00 76 15 142/67 100 02/28/19 09:59 76 142/61 - Physical Examination General: Appears Well HEENT: Positive: PERRL Neck: Positive: trachea midline. Negative: JVD/HJR Cardiac: Positive: Reg Rate and Rhythm Lungs: Positive: Decreased Breath Sounds Neuro: Positive: Grossly Intact Abdomen: Positive: Soft Extremities: Absent: edema - Labs and Meds CBC 03/01/19 Range/Units 04:21 WBC 7.9 (4.5-11.0) K/mm3 RBC 4.47 (3.65-5.03) M/mm3 Hgb 13.3 (10.1-14.3) gm/dl Hct 39.4 (30.3-42.9) % Plt Count 424 (140-440) K/mm3 Comprehensive Metabolic Panel 03/01/19 Range/Units 04:21 Sodium 139 (137-145) mmol/L Potassium 3.5 L D (3.6-5.0) mmol/L Chloride 103.7 (98-107) mmol/L Carbon Dioxide 22 (22-30) mmol/L BUN 8 (7-17) mg/dL Creatinine 0.5 L (0.7-1.2) mg/dL Glucose 85 (65-100) mg/dL Calcium 8.7 (8.4-10.2) mg/dL
[2019-03-01] MEDS ORDERED: K-DUR PO ONE (10:00)
[2019-03-01] MEDS ORDERED: PLAVIX PO SCH (10:00)
--- NOTE | 2019-03-01 10:58 | Discharge Summary ---
Providers - Providers Date of Admission: 02/27/19 17:12 Date of discharge: 03/01/19 Attending physician: WILFRID BARKER 02/27/19 Consult to Cardiac Rehabilitation [CONS] Routine Reason For Exam: post pci 02/27/19 19:21 Consult to Physician [CONS] Routine Comment: Consulting Provider: MIGUEL ANGEL CELIS Physician Instructions: Reason For Exam: Stemi [facility] Condition: Stable Pertinent studies: CXR cardiac cath 2d echo Hospital course: 58-year-old -Martiniquais female with history of hypertension, HLD and coronary artery disease presented with chest pain for 2 days duration. EMS was called and Patient was found on the floor in the bathroom by EMS. EKG sent by EMS to the ER physician showed ST elevation WI in the inferior leads. Code STEMI was called in the field and patient was transferred from room 18 in the emergency room directly to the Information Technology Security Analyst. [employer] on-call Dr. Willam Celis was informed and patient was taken emergently to the manager lab and underwent successful primary PCI of the right coronary artery. Post-PCI patient is currently chest pain-free. Cardiology recommended further follow up outpt. Patient was discharged home in stable condition. Last admission was reviewed from 2016 which showed: Patient had a cardiac cath. Stress test was abnormal. Patient had cardiac cath which showed moderate three-vessel disease and was prescribed a Plavix. Patient did not follow with cardiology. Was following at [facility] and now has a PCP. Discharge diagnosis: Acute ST elevation inferior wall WI s/p PCI of the RCA using drug eluting stent. Continue asa, plavix, lipitor and amlodipine for staged PCI of the proximal LAD as an outpatient. Essential hypertension, moderately controlled Obesity, likely from access calorie h/o moderate 3 vessels CAD Hyperlipidemia, on statin Hypokalemia, repleted, Changed hctz to aldactone due to hypokalemia Sinus bradycardia, resolved, no BB prescribed on discharge Disposition: DC-01 TO HOME OR SELFCARE Time spent for discharge: 34 minutes Core Measure Documentation - Palliative Care Palliative Care/ Comfort Measures: Not Applicable - Core Measures Any of the following diagnoses?: acute WI - Acute WI Discharge Requirements Aspirin at discharge: Yes JIMENA/ARB for LVSD if EF <40%: Not Applicable Beta ambrocio at discharge: No Reason for no beta ambrocio on DC: Bradycardia Statin for LDL = or >100 mg/dl on DC: Yes Exam - Constitutional Vitals: Temp Pulse Resp BP Pulse Ox 98.1 F 82 14 152/82 98 03/01/19 08:00 03/01/19 10:01 03/01/19 10:01 03/01/19 10:01 03/01/19 10:01 General appearance: Present: no acute distress, obese - EENT Eyes: Present: PERRL ENT: hearing intact, clear oral mucosa - Neck Neck: Present: supple, normal ROM - Respiratory Respiratory effort: normal Respiratory: bilateral: CTA - Cardiovascular Heart Sounds: Present: S1 & S2. Absent: rub, click - Extremities Extremities: pulses symmetrical, No edema Peripheral Pulses: within normal limits - Abdominal General gastrointestinal: Present: soft, non-tender, non-distended, normal bowel sounds - Integumentary Integumentary: Present: clear, warm, dry - Musculoskeletal Musculoskeletal: gait normal, strength equal bilaterally - Psychiatric Psychiatric: appropriate mood/affect, intact judgment & insight - Neurologic Neurologic: CNII-XII intact, moves all extremities Plan Activity: advance as tolerated Weight Bearing Status: Non-Weight Bearing Diet: low fat, low salt Additional Instructions: follow up with Dr Celis March 09 at 2:20pm [facility] [Primary Care Provider[facility] - 7 Days MIGUEL ANGEL CELIS MD [Staff Physician] - 7 Days Prescriptions: AtorvaSTATin [Lipitor] 80 mg PO QHS #30 tablet Spironolactone [Aldactone] 25 mg PO QDAY #30 tablet Aspirin [Aspirin BABY CHEW TAB] 81 mg PO QDAY #30 tab.chew Carvedilol [Coreg] 3.125 mg PO BID #60 tablet Nitroglycerin [Nitrostat] 0.4 mg SL Q5M PRN #30 tablet PRN Reason: Chest Pain amLODIPine [Norvasc] 10 mg PO DAILY #90 tablet Clopidogrel [Plavix] 75 mg PO QDAY #30 tablet Ascorbic Acid [Vitamin C] 500 mg PO QDAY #30 tablet
[2019-03-01] MEDS ORDERED: ALDACTONE PO SCH (11:00)
[2019-03-01 15:06] VITALS: BP 152/82
== END 2019-03-01 12:58 | disposition home or self-care (01) | DRG 247 ==
LOC: CATH 15:30 → EDSTATUS 15:30 → ED 15:30 → CC1 17:12
PROVIDERS: ADMIT Internal Medicine; ATTEND Internal Medicine
PROC: 027034Z Dilation of Coronary Artery, One Artery with Drug-eluting Intraluminal Device, Percutaneous Approach (ICD-10-PCS; principal; 2019-02-27)
PROC: 4A023N7 Measurement of Cardiac Sampling and Pressure, Left Heart, Percutaneous Approach (ICD-10-PCS; 2019-02-27)
PROC: B2111ZZ Fluoroscopy of Multiple Coronary Arteries using Low Osmolar Contrast (ICD-10-PCS; 2019-02-27)
PROC: B2151ZZ Fluoroscopy of Left Heart using Low Osmolar Contrast (ICD-10-PCS; 2019-02-27)
DX: I21.19 ST elevation (STEMI) myocardial infarction involving other coronary artery of inferior wall (principal); I10 Essential (primary) hypertension; E66.9 Obesity, unspecified; E87.6 Hypokalemia; I25.10 Atherosclerotic heart disease of native coronary artery without angina pectoris; E78.2 Mixed hyperlipidemia; Z68.35 Body mass index [BMI] 35.0-35.9, adult; Z82.49 Family history of ischemic heart disease and other diseases of the circulatory system; Z79.82 Long term (current) use of aspirin; Z79.899 Other long term (current) drug therapy
CPT/HCPCS: 36415; 71045; 80048; 80061; 80076; 82550; 82553; 82962; 83036; 83735; 83880; 84132; 84484; 85007; 85025; 85027; 85347; 85610; 85730; 86850; 86870; 86900; 86901; 92941; 93005; 93010; 93306; 93458; 99285; G0378; A9270-GY; C1725; C1769; C1874; C1887; C1894; C9606; J1170; J1644; J2250; J2270; J2405; J2765; J3010; J3246; J3480; J7030; Q9967

== ENCOUNTER 2019-04-25 07:26 | Day surgery (SDC) | payer OTHER ==
[~2019-04-25 07:26] MED LIST changes: -HEPARIN 10,000 UNITS/10 ML ONE; +NACL 0.9% 1000 ML 1,000 ML IV SCH
[2019-04-25 08:28] VITALS: BP 163/68
== END 2019-04-25 07:27 | disposition home or self-care (01) ==
LOC: GIO 07:26
PROVIDERS: ATTEND Student in an Organized Health Care Education/Training Program
DX: Z12.11 Encounter for screening for malignant neoplasm of colon (principal); I10 Essential (primary) hypertension; I25.110 Atherosclerotic heart disease of native coronary artery with unstable angina pectoris; I25.2 Old myocardial infarction; E78.5 Hyperlipidemia, unspecified; F32.9 Major depressive disorder, single episode, unspecified; F41.9 Anxiety disorder, unspecified; Z53.8 Procedure and treatment not carried out for other reasons; Z79.899 Other long term (current) drug therapy; Z87.891 Personal history of nicotine dependence; Z98.890 Other specified postprocedural states
CPT/HCPCS: J7030

== ENCOUNTER 2021-03-12 13:11 | Emergency (ER) | payer OTHER ==
[2021-03-12 13:20] VITALS: BP 183/77
--- NOTE | 2021-03-12 14:25 | Emergency Department Report ---
ED ENT HPI - General Chief complaint: Dental/Oral Stated complaint: RT JAW PAIN Time Seen by Provider: 03/12/21 14:15 Source: patient Mode of arrival: Ambulatory Limitations: No Limitations - History of Present Illness Initial comments: 60-year-old female with a past medical history of hypertension and CAD s/p stent placement presents to the ER today with complaints of right facial pain. Patient states that she has been having this pain for the past 3 months. She states that she thought it was related to her tooth. She saw a dentist about a couple weeks ago and had some of the tooth removed and her lower jaw but she states that despite removing the tooth she still continues to have pain. She states that she saw the dentist again yesterday. She states that she was told that there are additional teeth in the right upper and lower jaw that needs to be removed but she states that when she had the tooth touched by the dentist they were not painful and so they suspected that something else could be causing her pain and she states that she came here today to try to figure it out. She describes the pain as a sharp tingling pain. She reports also pain in her right ear and down below her right jaw. She reports no vision changes, facial weakness, or difficulty swallowing, trismus or drooling or any other associated symptoms. She denies any head injuries, facial or neck injuries. MD complaint: other (Right facial pain ) -: month(s) (3 mths ) - Related Data Home Medications Medication Instructions Recorded Confirmed Last Taken Niacin 250 mg PO DAILY 11/21/15 02/28/19 04/24/19 [place]-3 Fatty Acids [Fish Oil] 300 mg PO DAILY 11/21/15 02/27/19 04/24/19 Isosorbide Mononitrate 30 mg PO DAILY 04/25/19 04/25/19 04/24/19 Previous Rx's Medication Instructions Recorded Last Taken Type Ascorbic Acid [Vitamin C] 500 mg PO QDAY #30 tablet 03/01/19 04/24/19 Rx AtorvaSTATin [Lipitor] 80 mg PO QHS #30 tablet 03/01/19 04/24/19 Rx Clopidogrel [Plavix] 75 mg PO QDAY #30 tablet 03/01/19 04/24/19 Rx Nitroglycerin [Nitrostat] 0.4 mg SL Q5M PRN #30 tablet 03/01/19 Unknown Rx Spironolactone [Aldactone] 25 mg PO QDAY #30 tablet 03/01/19 04/24/19 Rx Gabapentin 1 tab PO BID #30 cap 03/12/21 Unknown Rx methylPREDNISolone [Medrol 4MG 4 mg PO DAILY #1 tab.ds.pk 03/12/21 Unknown Rx DOSEPAK (21 tabs)] Allergies Allergy/AdvReac Type Severity Reaction Status Date / Time No Known Allergies Allergy Verified 04/23/19 11:06 ED Dental HPI - General Chief complaint: Dental/Oral Stated complaint: RT JAW PAIN Time Seen by Provider: 03/12/21 14:15 Source: patient Mode of arrival: Ambulatory Limitations: No Limitations - Related Data Home Medications Medication Instructions Recorded Confirmed Last Taken Niacin 250 mg PO DAILY 11/21/15 02/28/19 04/24/19 [place]-3 Fatty Acids [Fish Oil] 300 mg PO DAILY 11/21/15 02/27/19 04/24/19 Isosorbide Mononitrate 30 mg PO DAILY 04/25/19 04/25/19 04/24/19 Previous Rx's Medication Instructions Recorded Last Taken Type Ascorbic Acid [Vitamin C] 500 mg PO QDAY #30 tablet 03/01/19 04/24/19 Rx AtorvaSTATin [Lipitor] 80 mg PO QHS #30 tablet 03/01/19 04/24/19 Rx Clopidogrel [Plavix] 75 mg PO QDAY #30 tablet 03/01/19 04/24/19 Rx Nitroglycerin [Nitrostat] 0.4 mg SL Q5M PRN #30 tablet 03/01/19 Unknown Rx Spironolactone [Aldactone] 25 mg PO QDAY #30 tablet 03/01/19 04/24/19 Rx Gabapentin 1 tab PO BID #30 cap 03/12/21 Unknown Rx methylPREDNISolone [Medrol 4MG 4 mg PO DAILY #1 tab.ds.pk 03/12/21 Unknown Rx DOSEPAK (21 tabs)] Allergies Allergy/AdvReac Type Severity Reaction Status Date / Time No Known Allergies Allergy Verified 04/23/19 11:06 ED Review of Systems ROS: Stated complaint: RT JAW PAIN Other details as noted in HPI Comment: All other systems reviewed and negative Constitutional: denies: chills, fever Eyes: denies: eye pain, eye discharge, vision change ENT: ear pain, other (Right-sided facial pain). denies: throat pain, dental pain, hearing loss, epistaxis, congestion Respiratory: denies: cough, shortness of breath, SOB with exertion, SOB at rest, wheezing Cardiovascular: denies: chest pain, palpitations, dyspnea on exertion, edema, syncope, paroxysmal nocturnal dyspnea Gastrointestinal: denies: abdominal pain, nausea, diarrhea, constipation, hematemesis, melena, hematochezia Genitourinary: denies: urgency, dysuria, frequency, hematuria, discharge, abnormal menses, dyspareunia Musculoskeletal: denies: back pain, joint swelling, arthralgia Skin: denies: rash, lesions, change in color, change in hair/nails, pruritus Neurological: paresthesias. denies: headache, weakness, numbness, confusion, abnormal gait, vertigo Psychiatric: denies: anxiety, depression, auditory hallucinations, visual hallucinations, homicidal thoughts Hematological/Lymphatic: denies: easy bleeding, easy bruising ED Past Medical Hx - Past Medical History Previous Medical History?: Yes Hx Hypertension: Yes Hx Heart Attack/AMI: Yes (3 CARDIAC STENT) Hx Congestive Heart Failure: No Hx Diabetes: No Hx Deep Vein Thrombosis: No Hx Pulmonary Embolism: No Hx Liver Disease: No Hx Renal Disease: No Hx Sickle Cell Disease: No Hx Arthritis: No Hx Seizures: No Hx Kidney Stones: No Hx Asthma: No Hx COPD: No Hx Tuberculosis: No Hx Dementia: No Hx HIV: No Additional medical history: Three-vessel coronary artery disease. Hypertension - Surgical History Past Surgical History?: Yes Hx Coronary Stent: Yes (3) Hx Open Heart Surgery: No Hx Pacemaker: No Hx Internal Defibrillator: No Hx Cholecystectomy: No Hx Appendectomy: No Hx Breast Surgery: No - Social History Smoking Status: Former Smoker - Medications Home Medications: Home Medications Medication Instructions Recorded Confirmed Last Taken Type Niacin 250 mg PO DAILY 11/21/15 02/28/19 04/24/19 History [place]-3 Fatty Acids [Fish Oil] 300 mg PO DAILY 11/21/15 02/27/19 04/24/19 History Ascorbic Acid [Vitamin C] 500 mg PO QDAY #30 tablet 03/01/19 04/24/19 Rx AtorvaSTATin [Lipitor] 80 mg PO QHS #30 tablet 03/01/19 04/25/19 04/24/19 Rx Clopidogrel [Plavix] 75 mg PO QDAY #30 tablet 03/01/19 04/24/19 Rx Nitroglycerin [Nitrostat] 0.4 mg SL Q5M PRN #30 tablet 03/01/19 04/25/19 Unknown Rx Spironolactone [Aldactone] 25 mg PO QDAY #30 tablet 03/01/19 04/24/19 Rx Isosorbide Mononitrate 30 mg PO DAILY 04/25/19 04/25/19 04/24/19 History Gabapentin 1 tab PO BID #30 cap 03/12/21 Unknown Rx methylPREDNISolone [Medrol 4MG 4 mg PO DAILY #1 tab.ds.pk 03/12/21 Unknown Rx DOSEPAK (21 tabs)] ED Physical Exam - General Limitations: No Limitations General appearance: alert, in no apparent distress - Head Head exam: Present: atraumatic, normocephalic, normal inspection - Eye Eye exam: Present: normal appearance, PERRL, EOMI Pupils: Present: normal accommodation - ENT ENT exam: Present: normal exam, normal orophraynx, mucous membranes moist, TM's normal bilaterally, other (Poor dentition right upper and right lower jaw but the teeth are nontender with no associated gum swelling or abscess.) - Expanded ENT Exam Expanded Ear exam: Present: normal external inspection Mouth exam: Present: normal external inspection. Absent: drooling, trismus, muffled voice, tongue normal, tongue elevation, laceration Teeth exam: Present: dental caries. Absent: dental tenderness #, gingival enlargement Throat exam: Positive: normal inspection - Neck Neck exam: Present: normal inspection, full ROM, lymphadenopathy (Right submandibular area). Absent: meningismus - Respiratory Respiratory exam: Present: normal lung sounds bilaterally. Absent: respiratory distress - Cardiovascular Cardiovascular Exam: Present: regular rate, normal rhythm, normal heart sounds - Neurological Exam Neurological exam: Present: alert, oriented X3, CN II-XII intact, normal gait - Psychiatric Psychiatric exam: Present: normal affect, normal mood - Skin Skin exam: Present: intact ED Course Vital Signs 03/12/21 13:14 Temperature 98.3 F Pulse Rate 70 Respiratory 18 Rate Blood Pressure 183/77 [Right] O2 Sat by Pulse 100 Oximetry ED Medical Decision Making - Medical Decision Making 60-year-old female with a past medical history of hypertension and CAD s/p stent placement presents to the ER today with complaints of right facial pain. Patient states that she has been having this pain for the past 3 months. She states that she thought it was related to her tooth. She saw a dentist about a couple weeks ago and had some of the tooth removed and her lower jaw but she states that despite removing the tooth she still continues to have pain. She states that she saw the dentist again yesterday. She states that she was told that there are additional teeth in the right upper and lower jaw that needs to be removed but she states that when she had the tooth touched by the dentist they were not painful and so they suspected that something else could be causing her pain and she states that she came here today to try to figure it out. She describes the pain as a sharp tingling pain. She reports also pain in her right ear and down below her right jaw. She reports no vision changes, facial weakness, or difficulty swallowing, trismus or drooling, chest pain, shortness of breath or any other associated symptoms. She denies any head injuries, facial or neck injuries. Patient is well-appearing, she is not toxic and not in any acute distress. her Mental status is normal and there is no focal neurological deficits on exam and she has a normal gait in the ER. Patient symptoms has been going on for 3 months and suspect that her symptoms could be related to trigeminal neuralgia based on the description in her history. At this time I do not suspect that her symptoms are related to CVA/TIA, coronary artery dissection, infection, and acute cardiopulmonary disease, or any other acute emergent conditions requiring imaging or testing or admission or emergent specialist consult at this time. Discussed suspected diagnosis with patient. Discussed treatment plan with patient. Informed her that if her symptoms persist despite the medication prescribed here recommend that she follow-up with her primary care doctor for referral to neurologist. Patient expressed understanding of instructions and agree with plan. Patient stable at time of infection. Critical care attestation.: If time is entered above; I have spent that time in minutes in the direct care of this critically ill patient, excluding procedure time. ED Disposition Clinical Impression: Trigeminal neuralgia of right side of face Disposition: DC-01 TO HOME OR SELFCARE Is pt being admited?: No Does the pt Need Aspirin: No Condition: Stable Instructions: Trigeminal Neuralgia Additional Instructions: Take the Medrol Dosepak and the gabapentin as prescribed. If your symptoms persist, despite taking the medication is important that you follow-up with your primary care doctor to refer you to neurologist. Return to the ER if your symptoms changes or worsens in any way. Prescriptions: Gabapentin 1 tab PO BID #30 cap methylPREDNISolone [Medrol 4MG DOSEPAK (21 tabs)] 4 mg PO DAILY #1 tab.ds.pk Referrals: TOMASA FERGUSON MD [Staff Physician] - 3-5 Days [facility] [Provider Group] - 3-5 Days Time of Disposition: 14:31
[2021-03-12] MEDS ORDERED: KETOROLAC 30 MG/1 ML INJ IM ONE (14:32)
[2021-03-12] MEDS ORDERED: dexAMETHasone 20 MG/5 ML VIAL IM ONE (14:32)
== END 2021-03-12 14:55 | disposition home or self-care (01) ==
LOC: ED 13:11
DX: G50.0 Trigeminal neuralgia (principal); I10 Essential (primary) hypertension; I25.2 Old myocardial infarction; Z98.890 Other specified postprocedural states; Z87.891 Personal history of nicotine dependence; Z79.899 Other long term (current) drug therapy
CPT/HCPCS: 96372; 99282; J1100; J1885